=== PATIENT | female | born 1955 | race Caucasian/White ===

== ENCOUNTER 2017-09-08 12:09 | Emergency (ER) | payer OTHER ==
[~2017-09-08] VITALS: Ht 172.7 cm; Wt 60.0 kg
[~2017-09-08 12:09] MED LIST: CHOL1TAB41 PO; LANS30CA PO; XANA1TAB2 PO; ZOLO100T PO
[2017-09-08 12:16] VITALS: BP 125/78; PULSE 99; RESP 18; TEMP 98.4; O2SAT 99
--- NOTE | 2017-09-08 13:30 | RADRPT ---
EXAM DATE/TIME: 09/08/2017 13:06 [facility] COMPARISON: ANKLE LEFT COMPLETE ([id number]), February 23, 2015, 13:51. INDICATIONS : Fell last night, bilateral ankle pain MEDICAL HISTORY : Multiple sclerosis. right ankle fracture SURGICAL HISTORY : right ankle ORIF ENCOUNTER: Initial ACUITY: 1 day PAIN SCORE: 10/10 LOCATION: Left ankle FINDINGS: 3 views of the ankle demonstrate comminuted fractures of the diametaphysis of the distal tibia and fi bula with one of the fracture lines in the tibia extending to the posterior metaphysis. No intra-art icular extension seen. No significant displacement or angulation. There is mild soft tissue swellin g about the lateral aspect of the ankle. The ankle mortise appears intact. Large plantar calcaneal spur, similar to prior. CONCLUSION: Comminuted fractures of the distal tibia and fibula. Chan Yu MD on September 08, 2017 at 13:27 Board Certified Radiologist. This report was verified electronically.
--- NOTE | 2017-09-08 13:39 | RADRPT ---
EXAM DATE/TIME: 09/08/2017 13:06 [facility] COMPARISON: ANKLE RIGHT COMPLETE ([id number]), May 29, 2016, 7:29. INDICATIONS : Fell last night, bilateral ankle pain MEDICAL HISTORY : right ankle fracture SURGICAL HISTORY : right ankle ORIF ENCOUNTER: Initial ACUITY: 1 day PAIN SCORE: 10/10 LOCATION: Right ankle FINDINGS: Three-view examination demonstrates indwelling internal fixation hardware with a plate in the distal fibula, a long compression screw extending from the medial malleolus into the diametaphyseal region o f the distal tibia, and 3 anterior compression screws in the distal tibia. Bony structures are in no rmal alignment. No evidence of acute fracture. Large plantar calcaneal spur is similar to prior pos top diffuse osteopenia. CONCLUSION: No evidence of recent bony injury. Internal fixation hardware is intact. Diffuse osteopenia. Chan Yu MD on September 08, 2017 at 13:36 Board Certified Radiologist. This report was verified electronically.
[2017-09-08] MEDS ORDERED: CALC1TAB16 PO (13:54)
--- NOTE | 2017-09-08 14:09 | PD ---
HPI Chief Complaint: Injury Time Seen by Provider: 13:53 Travel History International Travel<30 days: No Contact w/Intl Traveler<30days: No Traveled to known affect area: No History of Present Illness HPI 62-year-old female, with history of MS, presents to the emergency department with complaint of bilateral lower leg and ankle pain after her knees gave out and she fell. Arrived via EMS. She was walking with her walker, as normal, and her knees gave out and she fell. She said she felt to the right side and her right leg hit a small wooden rocking chair. She denies hitting her head or loss of consciousness. Has history of right ankle fracture with surgery and hardware placement. Denies paresthesias, loss of sensation to bilateral lower extremities. Rates pain 10/10. Describes it as constant throbbing and aching. Worse with movement. No known relieving factors. Has not taken any medication or try any treatments to alleviate her symptoms. Primary care provider is Dr. Hardeep Palacio. Allergies to penicillin. Neurologist is Dr. Guan. History of multiple sclerosis. Has no other medical complaints. No other modifying factors or associated signs and symptoms. PFSH Past Medical History Arthritis: Yes Anxiety: Yes Depression: Yes Cancer: No Cardiovascular Problems: No High Cholesterol: Yes Chemotherapy: No Cerebrovascular Accident: No Diabetes: No Diminished Hearing: No Endocrine: No Genitourinary: No Hepatitis: No Hiatal Hernia: No Immune Disorder: Yes (EBSTEIN GILLIAM) Musculoskeletal: Yes (POSSIBLE MS/ BULGING DISCS; SPINAL STENOSIS; OSTEOPOROSIS ) Neurologic: Yes Psychiatric: No Reproductive: No Respiratory: No Thyroid Disease: No Tetanus Vaccination: Unknown Influenza Vaccination: No Menopausal: Yes : 2 Para: 2 Past Surgical History Abdominal Surgery: No Body Medical Devices: HARDWARE IN RIGHT ELBOW REMOVED Cardiac Surgery: No Ear Surgery: No Endocrine Surgery: No Eye Surgery: No Genitourinary Surgery: No Gynecologic Surgery: No Hysterectomy: No Oral Surgery: No Thoracic Surgery: No Other Surgery: Yes Social History Alcohol Use: No Tobacco Use: Yes (1.5 PPD) Substance Use: No Allergies-Medications (Allergen,Severity, Reaction): Coded Allergies: penicillin G (Unverified Allergy, Intermediate, Itching, 09/08/17) Reported Meds & Prescriptions Reported Meds & Active Scripts Active [place] (Hydrocodone-Acetaminophen) 10-325 Mg Tab 1 Tab PO Q6H PRN Miralax Powder (Polyethylene Glycol 3350 Powder) 17 Gm Powd 17 Gm PO DAILY Mix and dissolve one measuring cap-ful (17 grams) in water or juice. Reported Calcium Citrate-Vitamin D 315-200 Mg-Unit Tab 1 Tab PO BID Lansoprazole 30 Mg Capdr 30 Mg PO DAILY Xanax (Alprazolam) 1 Mg Tab 1 Mg PO BID PRN Zoloft (Sertraline HCl) 100 Mg Tab 150 Mg PO DAILY Review of Systems Except as stated in HPI: all other systems reviewed are Neg Physical Exam Narrative GENERAL: Well-nourished, well-developed female patient, in no acute distress SKIN: Warm and dry. HEAD: Atraumatic. Normocephalic. EYES: Pupils equal and round. No scleral icterus. No injection or drainage. ENT: Mucosa pink and moist. Airway patent. NECK: Trachea midline. CARDIOVASCULAR: Regular rate. RESPIRATORY: No accessory muscle use. GASTROINTESTINAL: Flat. MUSCULOSKELETAL: Left ankle with point tenderness to the lateral malleolar zone ; with minimal edema; without erythema, ecchymosis; no obvious deformity; patient has tenderness on palpation to the lower tib/fib area of the leg also. Right ankle with tenderness on palpation to the medial and lateral malleolar zone; no obvious deformity; without erythema, edema, ecchymosis. Right lower leg with tenderness on palpation and some noted possible deformity to the proximal aspect of the right lower leg just below the knee; areas of tenderness on palpation and without erythema, edema, ecchymosis. Bilateral lower extremities are supple and nontender 2+ pedal pulses and sensory intact and without erythema or edema. No obvious deformities. No clubbing. No cyanosis. No edema. NEUROLOGICAL: Awake and alert. Oriented 3. No obvious cranial nerve deficits. Motor grossly within normal limits. Normal speech. PSYCHIATRIC: Appropriate mood and affect; insight and judgment normal. Data Data Last Documented VS Vital Signs Date Time Temp Pulse Resp B/P (MAP) Pulse Ox O2 Delivery O2 Flow Rate FiO2 09/08/17 18:56 09/08/17 17:51 85 14 99 Room Air 09/08/17 12:16 98.4 Orders Orders Ankle, Complete ([id number]) (09/08/17 ) Ankle, Complete ([id number]) (09/08/17 ) Tibia/Fibula (Ap/Lat) (09/08/17 14:04) Morphine Inj (Morphine Inj) (09/08/17 14:15) Ondansetron Inj (Zofran Inj) (09/08/17 14:15) Iv Access Insert/Monitor (09/08/17 14:05) Splint Or Brace Apply/Monitor (09/08/17 15:10) Ice/Cold Pack (09/08/17 15:16) Ed Discharge Order (09/08/17 17:08) Fiberglass Short Leg Splint Ad (09/08/17 ) Fiberglass Sugartong Sp Ad Sl (09/08/17 ) Fiberglass Long Leg Splint Ad (09/08/17 ) MDM Medical Decision Making Medical Screen Exam Complete: Yes Emergency Medical Condition: Yes Medical Record Reviewed: Yes Differential Diagnosis Fracture, sprain, injury Narrative Course 62-year-old female with history of multiple sclerosis with bilateral ankle and lower leg pain after her knees gave out and she fell. She was not using her walker. She denies hitting her head or loss of consciousness. Denies neck pain or back pain. Bilateral ankle x-rays were ordered in triage. 1405: Bilateral ankle x-rays conclude: Ankle X-Ray 09/08/17 0000 Signed Impressions: Right ankle Service Date/Time: Friday, September 08, 2017 13:06 - CONCLUSION: No evidence of recent bony injury. Internal fixation hardware is intact. Diffuse osteopenia. Chan Yu MD Ankle X-Ray 09/08/17 0000 Signed Impressions: Left ankle Service Date/Time: Friday, September 08, 2017 13:06 - CONCLUSION: Comminuted fractures of the distal tibia and fibula. Chan Yu MD There is concern of right tib-fib fracture to the proximal aspect on exam. Right tib-fib x-ray ordered. IV site started. Morphine and Zofran ordered. 1619: Right tib-fib x-ray concludes: Comminuted fractures with mild angulation involving the proximal tibia and fibula. Call placed to orthopedic surgeon. Dr Fraser spoke with orthopedic surgeon and they are nonsurgical. Dr. Ríos offered for the patient to be admitted and she wants to go home. See Dr. Ríos's note for patient disposition. Patient will be discharged home. Instructed patient follow-up with orthopedic surgeon. Instructed patient to follow up with primary care provider. Patient verbalizes understanding and agreement with treatment plan. Patient is medically cleared and stable for discharge. Discussed reasons to return to the emergency department. Patient agrees with treatment plan. The patients vital signs are stable and the patient is stable for outpatient follow-up and treatment. Patient discharged home, stable and in no acute distress. Diagnosis Primary Impression: Left tibial fracture Qualified Codes: S82.302A - Unspecified fracture of lower end of left tibia, initial encounter for closed fracture Additional Impressions: Left fibular fracture Qualified Codes: S82.832A - Other fracture of upper and lower end of left fibula, initial encounter for closed fracture Right tibial fracture Qualified Codes: S82.101A - Unspecified fracture of upper end of right tibia, initial encounter for closed fracture Right fibular fracture Qualified Codes: S82.831A - Other fracture of upper and lower end of right fibula, initial encounter for closed fracture Scripts Hydrocodone-Acetaminophen ([place]) 10-325 Mg Tab 1 TAB PO Q6H Y for PAIN, #20 TAB 0 Refills Prov: Justin Ríos MD 09/08/17 Polyethylene Glycol 3350 Powder (Miralax Powder) 17 Gm Powd 17 GM PO DAILY for Constipation, #1 CAN 0 Refills Mix and dissolve one measuring cap-ful (17 grams) in water or juice. Prov: Justin Ríos MD 09/08/17 Nicole Story Sep 08, 2017 14:09
[2017-09-08] MEDS ORDERED: ONDANSETRON HCL 4 MG/2 ML VIAL IV PUSH ONE (14:15)
[2017-09-08] MEDS ORDERED: MORPHINE SULFATE 4 MG/ML INJ IV PUSH ONE (14:15)
[2017-09-08 15:20] VITALS: BP 129/72; PULSE 90; RESP 16; O2SAT 99
--- NOTE | 2017-09-08 16:06 | RADRPT ---
EXAM DATE/TIME: 09/08/2017 15:52 [facility] COMPARISON: No previous studies available for comparison. INDICATIONS : Pain from fall. MEDICAL HISTORY : Prior broken ankle, right. SURGICAL HISTORY : Surgical repair, right ankle. ENCOUNTER: Initial ACUITY: 2 days PAIN SCORE: 10/10 LOCATION: Right proximal lower leg. FINDINGS: Diffuse osteopenia. Partially comminuted fractures of the proximal tibia and edema are present. The fibular fractures involve both the metaphysis and proximal diametaphyseal region with mild lateral d isplacement of distal fracture fragment. The fracture lines in the proximal tibia extending into the metaphysis centrally and there is mild posterior angulation. Hardware in the distal fibula and tibia is intact. No fracture seen in the distal tibia or fibula. No radiopaque foreign body seen in the soft tissues. CONCLUSION: Comminuted fractures with mild angulation involving the proximal tibia and fibula. Chan Yu MD on September 08, 2017 at 16:03 Board Certified Radiologist. This report was verified electronically.
[2017-09-08] MEDS ORDERED: HYDR-3366 PO (17:07)
[2017-09-08] MEDS ORDERED: MIRA3350 PO (17:07)
--- NOTE | 2017-09-08 17:07 | PD ---
Physical Exam Narrative GENERAL: SKIN: Warm and dry. HEAD: Atraumatic. Normocephalic. EYES: Pupils equal and round. No scleral icterus. No injection or drainage. ENT: No nasal bleeding or discharge. Mucous membranes pink and moist. NECK: Trachea midline. No JVD. CARDIOVASCULAR: Regular rate and rhythm. RESPIRATORY: No accessory muscle use. Clear to auscultation. Breath sounds equal bilaterally. GASTROINTESTINAL: Abdomen soft, non-tender, nondistended. Hepatic and splenic margins not palpable. MUSCULOSKELETAL: Extremities without clubbing, cyanosis, HOWEVER TTP ON RIGHT PROXIMAL TIB/FIB AND LEFT DISTAL TIB FIB NEUROLOGICAL: Awake and alert. No obvious cranial nerve deficits. Motor grossly within normal limits. Five out of 5 muscle strength in the arms and legs. Normal speech. PSYCHIATRIC: Appropriate mood and affect; insight and judgment normal. Data Data Last Documented VS Vital Signs Date Time Temp Pulse Resp B/P (MAP) Pulse Ox O2 Delivery O2 Flow Rate FiO2 09/08/17 15:20 90 16 129/72 (91) 99 Room Air 09/08/17 12:16 98.4 Orders Orders Ankle, Complete ([id number]) (09/08/17 ) Ankle, Complete ([id number]) (09/08/17 ) Tibia/Fibula (Ap/Lat) (09/08/17 14:04) Morphine Inj (Morphine Inj) (09/08/17 14:15) Ondansetron Inj (Zofran Inj) (09/08/17 14:15) Iv Access Insert/Monitor (09/08/17 14:05) Splint Or Brace Apply/Monitor (09/08/17 15:10) Ice/Cold Pack (09/08/17 15:16) MDM Medical Record Reviewed: Yes Supervised Visit with [facility]: Yes Physician Communication Physician Communication DISCUSSED WITH DR STOUT ORTHOPEDIST WHO AFTER REVIEW RECOMMENDED NONOPERATIVE CARE. WHICH WHEN D/W PATIENT, PATIENT AGREED WITH AND STATED SHE WOULD LIKE TO GO HOME AND SETUP HOME HEALTH ON HER OWN WITH THE HELP OF HER DAUGHTER. Diagnosis Primary Impression: Left tibial fracture Qualified Codes: S82.302A - Unspecified fracture of lower end of left tibia, initial encounter for closed fracture Additional Impressions: Left fibular fracture Qualified Codes: S82.832A - Other fracture of upper and lower end of left fibula, initial encounter for closed fracture Right tibial fracture Qualified Codes: S82.101A - Unspecified fracture of upper end of right tibia, initial encounter for closed fracture Right fibular fracture Qualified Codes: S82.831A - Other fracture of upper and lower end of right fibula, initial encounter for closed fracture Referrals: Ahmet Stout MD Patient Instructions: General Instructions, Leg Fracture (DC) Scripts Hydrocodone-Acetaminophen ([place]) 10-325 Mg Tab 1 TAB PO Q6H Y for PAIN, #20 TAB 0 Refills Prov: Justin Ríos MD 09/08/17 Polyethylene Glycol 3350 Powder (Miralax Powder) 17 Gm Powd 17 GM PO DAILY for Constipation, #1 CAN 0 Refills Mix and dissolve one measuring cap-ful (17 grams) in water or juice. Prov: Justin Ríos MD 09/08/17 Disposition: 01 DISCHARGE HOME Condition: Stable Justin Ríos MD Sep 08, 2017 17:07
[2017-09-08 17:51] VITALS: BP 120/70; PULSE 85; RESP 14; O2SAT 99
== END 2017-09-08 19:01 | disposition home or self-care (01) ==
LOC: NEPD 12:09 → NEDAMB 19:01
DX: S82.452A Displaced comminuted fracture of shaft of left fibula, initial encounter for closed fracture (principal); S82.252A Displaced comminuted fracture of shaft of left tibia, initial encounter for closed fracture; M85.871 Other specified disorders of bone density and structure, right ankle and foot; G35 Multiple sclerosis; M19.90 Unspecified osteoarthritis, unspecified site; F41.9 Anxiety disorder, unspecified; F32.9 Major depressive disorder, single episode, unspecified; E78.00 Pure hypercholesterolemia, unspecified; W18.00XA Striking against unspecified object with subsequent fall, initial encounter
CPT/HCPCS: 73590; 73610; 96374; 96375; 99284; J2270; J2405

== ENCOUNTER 2017-09-24 18:06 | Inpatient (IN) | payer OTHER, MEDICARE ==
[~2017-09-24] VITALS: Ht 172.7 cm; Wt 63.1 kg
[~2017-09-24 18:06] MED LIST changes: +CALC1TAB16 PO; -CHOL1TAB41 PO; +HYDR-3366 PO; +MIRA3350 PO
[2017-09-24 18:33] VITALS: BP 131/63; PULSE 84; RESP 18; TEMP 97.8; O2SAT 94
[2017-09-24] MEDS ORDERED: MORPHINE SULFATE 2 MG/ML INJ IV PUSH ONE (18:45)
[2017-09-24] MEDS ORDERED: SODIUM CHLOR 0.9% 1000 ML INJ 1,000 ML IV SCH (18:45)
[2017-09-24] MEDS ORDERED: ONDANSETRON HCL 4 MG/2 ML VIAL IV PUSH ONE (18:45)
[2017-09-24 18:46] VITALS: O2SAT 99
--- NOTE | 2017-09-24 18:50 | PD ---
HPI Chief Complaint: Injury Time Seen by Provider: 18:34 Travel History International Travel<30 days: No Contact w/Intl Traveler<30days: No Traveled to known affect area: No History of Present Illness HPI 62-year-old female complains of bilateral ankle pain. Patient was seen in emergency room September 08, 2017 after a fall. Patient complains of lateral lower leg and ankle injury at that time. X-ray of the left ankle at that time shows comminuted fracture of distal tibia and fibula. X-ray of the right ankle at that time shows no evidence of recent bony injury. Internal fixation hardware in place. X-ray of the right tib-fib shows fracture proximal right tibia and fibula. Patient had splint applied to both ankles. Patient was discharged home to follow-up with orthopedist. Patient states that she has not make an appointment with orthopedist for follow-up so far. Patient was given prescription for hydrocodone for pain. Patient states that she had persistent pain despite the pain medication. Patient states the pain is sharp pain localized to bilateral ankle area. Patient denies any pain radiation. Patient denies any new injury since last seen in the ED. On a scale of 1-10 the pain is a 10. Patient has history of MS and has been seen neurologist Dr. Guan for that. Primary care physician Dr. Hardeep Palacio. [facility] Past Medical History Arthritis: Yes Anxiety: Yes Depression: Yes Cancer: No Cardiovascular Problems: No High Cholesterol: Yes Chemotherapy: No Cerebrovascular Accident: No Diabetes: No Diminished Hearing: No Endocrine: No Genitourinary: No Hepatitis: No Hiatal Hernia: No Immune Disorder: Yes (EBSTEIN GILLIAM) Musculoskeletal: Yes (POSSIBLE MS/ BULGING DISCS; SPINAL STENOSIS; OSTEOPOROSIS ) Neurologic: Yes Psychiatric: No Reproductive: No Respiratory: No Thyroid Disease: No ?: Not Menopausal: Yes : 2 Para: 2 Past Surgical History Abdominal Surgery: No Body Medical Devices: HARDWARE IN RIGHT ELBOW REMOVED Cardiac Surgery: No Ear Surgery: No Endocrine Surgery: No Eye Surgery: No Genitourinary Surgery: No Gynecologic Surgery: No Hysterectomy: No Oral Surgery: No Thoracic Surgery: No Other Surgery: Yes Social History Alcohol Use: No Tobacco Use: Yes (1.5 PPD) Substance Use: No Allergies-Medications (Allergen,Severity, Reaction): Coded Allergies: penicillin G (Unverified Allergy, Intermediate, Itching, 09/08/17) Reported Meds & Prescriptions Reported Meds & Active Scripts Active [place] (Hydrocodone-Acetaminophen) 10-325 Mg Tab 1 Tab PO Q6H PRN Miralax Powder (Polyethylene Glycol 3350 Powder) 17 Gm Powd 17 Gm PO DAILY Mix and dissolve one measuring cap-ful (17 grams) in water or juice. Reported Calcium Citrate-Vitamin D 315-200 Mg-Unit Tab 1 Tab PO BID Lansoprazole 30 Mg Capdr 30 Mg PO DAILY Xanax (Alprazolam) 1 Mg Tab 1 Mg PO BID PRN Zoloft (Sertraline HCl) 100 Mg Tab 150 Mg PO DAILY Review of Systems General / Constitutional: No: Fever Eyes: No: Visual changes HENT: No: Headaches Cardiovascular: No: Chest Pain or Discomfort Respiratory: No: Shortness of Breath Gastrointestinal: No: Abdominal Pain Genitourinary: No: Dysuria Musculoskeletal: Positive: Pain Skin: No Rash Neurologic: No: Weakness Psychiatric: No: Depression Endocrine: No: Polydipsia Hematologic/Lymphatic: No: Easy Bruising Physical Exam Narrative GENERAL: Well-nourished, well-developed patient. SKIN: Focused skin assessment warm/dry. HEAD: Normocephalic. EYES: No scleral icterus. No injection or drainage. NECK: Supple, trachea midline. No JVD or lymphadenopathy. CARDIOVASCULAR: Regular rate and rhythm without murmurs, gallops, or rubs. RESPIRATORY: Breath sounds equal bilaterally. No accessory muscle use. GASTROINTESTINAL: Abdomen soft, non-tender, nondistended. MUSCULOSKELETAL: Patient has moderate diffuse tenderness over the right lower leg. Ecchymosis diffusely noted. Patient has diffuse moderate tenderness over the right ankle. Full range of motion of the toes. Patient has moderate diffuse tenderness over the left leg and left ankle also. Mild ecchymosis noted left ankle. Full range of motion of the toes. Good DP pulses bilaterally. Weak plantar flexion on the right foot. No obvious foot drop on the right foot. No evidence of left foot drop. Unable to move much of the left foot secondary to pain. BACK: Nontender without obvious deformity. No CVA tenderness. Neurologic exam normal. Data Data Last Documented VS Vital Signs Date Time Temp Pulse Resp B/P (MAP) Pulse Ox O2 Delivery O2 Flow Rate FiO2 09/24/17 18:46 99 Room Air 09/24/17 18:33 97.8 84 18 131/63 (85) Orders Orders Electrocardiogram (09/24/17 18:42) Complete Blood Count With Diff (09/24/17 18:42) Comprehensive Metabolic Panel (09/24/17 18:42) Prothrombin Time / Inr (Pt) (09/24/17 18:42) Act Partial Throm Time (Ptt) (09/24/17 18:42) Urinalysis - C+S If Indicated (09/24/17 18:42) Chest, Single Ap (09/24/17 18:42) Iv Access Insert/Monitor (09/24/17 18:42) Ecg Monitoring (09/24/17 18:42) Oximetry (09/24/17 18:42) Sodium Chlor 0.9% 1000 Ml Inj (Ns 1000 M (09/24/17 18:45) Morphine Inj (Morphine Inj) (09/24/17 18:45) Ondansetron Inj (Zofran Inj) (09/24/17 18:45) Tibia/Fibula (Ap/Lat) (09/24/17 18:44) Tibia/Fibula (Ap/Lat) (09/24/17 18:44) Hydromorphone Pf Inj (Dilaudid Pf Inj) (09/24/17 19:45) Ankle, Limited (Ap&Lat) (09/24/17 18:44) Ankle, Limited (Ap&Lat) (09/24/17 18:44) Splint Or Brace Apply/Monitor (09/24/17 20:43) Admit Order (Ed Use Only) (09/24/17 20:55) Consult Orthopedic (09/24/17 ) Labs Laboratory Tests Test 09/24/17 18:58 White Blood Count 6.4 TH/MM3 Red Blood Count 3.86 MIL/MM3 Hemoglobin 11.6 GM/DL Hematocrit 34.8 % Mean Corpuscular Volume 90.0 FL Mean Corpuscular Hemoglobin 30.0 PG Mean Corpuscular Hemoglobin Concent 33.3 % Red Cell Distribution Width 14.3 % Platelet Count 362 TH/MM3 Mean Platelet Volume 7.9 FL Neutrophils (%) (Auto) 61.5 % Lymphocytes (%) (Auto) 22.0 % Monocytes (%) (Auto) 11.1 % Eosinophils (%) (Auto) 4.7 % Basophils (%) (Auto) 0.7 % Neutrophils # (Auto) 3.9 TH/MM3 Lymphocytes # (Auto) 1.4 TH/MM3 Monocytes # (Auto) 0.7 TH/MM3 Eosinophils # (Auto) 0.3 TH/MM3 Basophils # (Auto) 0.0 TH/MM3 CBC Comment DIFF FINAL Differential Comment Prothrombin Time 10.4 SEC Prothromb Time International Ratio 1.0 RATIO Activated Partial Thromboplast Time 28.5 SEC Blood Urea Nitrogen 22 MG/DL Creatinine 0.57 MG/DL Random Glucose 92 MG/DL Total Protein 6.7 GM/DL Albumin 3.2 GM/DL Calcium Level 8.5 MG/DL Alkaline Phosphatase 294 U/L Aspartate Amino Transf (AST/SGOT) 29 U/L Alanine Aminotransferase (ALT/SGPT) 23 U/L Total Bilirubin 0.4 MG/DL Sodium Level 140 MEQ/L Potassium Level 4.2 MEQ/L Chloride Level 106 MEQ/L Carbon Dioxide Level 28.6 MEQ/L Anion Gap 5 MEQ/L Estimat Glomerular Filtration Rate 107 ML/MIN MDM Medical Decision Making Medical Screen Exam Complete: Yes Emergency Medical Condition: Yes Medical Record Reviewed: Yes Interpretation(s) Last Impressions Tibia/Fibula X-Ray 09/24/171843 Signed Impressions: Service Date/Time: Sunday, September 24, 2017 19:28 - CONCLUSION: Comminuted non-angulated fractures of the distal tibia and fibula with intra-articular extension of one of the tibial fracture lines. Nondisplaced fracture of the proximal fibular metaphysis. Chan Yu MD Tibia/Fibula X-Ray 09/24/[id number] Signed Impressions: Service Date/Time: Sunday, September 24, 2017 19:28 - CONCLUSION: Acute fractures of the proximal tibia and fibula with several large comminuted fragments in the proximal tibia. Chan Yu MD Ankle X-Ray [id number]/24/171843 Signed Impressions: Service Date/Time: Sunday, September 24, 2017 19:28 - CONCLUSION: Comminuted fractures of the distal tibia and fibula. Intra-articular extension of one of the tibial fracture lines. Chan Yu MD Ankle X-Ray [id number]/24/171843 Signed Impressions: Service Date/Time: Sunday, September 24, 2017 19:28 - CONCLUSION: Internal fixation hardware in the distal leg is grossly intact. Chan Yu MD Chest X-Ray 09/24/17 1842 Signed Impressions: Service Date/Time: Sunday, September 24, 2017 19:36 - CONCLUSION: Patchy left basilar infiltrates and linear atelectasis/scarring right lower lobe. Chan Yu MD 2034 PM. CBC within normal limits. CMP within normal limits. Alkaline phosphatase 294. Differential Diagnosis Differential diagnosis including bilateral tib-fib fracture. Narrative Course 62-year-old female with right proximal tib-fib fracture and left distal tib-fib fracture. Normal saline solution 100 cc an hour. Morphine 2 mg IV. Zofran 4 mg IV. Dilaudid 0.5 mg IV. Sugar tong splint left leg. Knee immobilizer right leg. Spoke with Dr. Thompson, orthopedist ammonia solution preparer. Advised medical admission. N.p.o. after midnight. Diagnosis Primary Impression: Closed fracture of distal end of left fibula and tibia Qualified Codes: S82.302G - Unspecified fracture of lower end of left tibia, subsequent encounter for closed fracture with delayed healing; S82.832G - Other fracture of upper and lower end of left fibula, subsequent encounter for closed fracture with delayed healing Additional Impressions: Closed fracture of proximal end of right tibia and fibula Qualified Codes: S82.101G - Unspecified fracture of upper end of right tibia, subsequent encounter for closed fracture with delayed healing; S82.831G - Other fracture of upper and lower end of right fibula, subsequent encounter for closed fracture with delayed healing Fracture of left proximal fibula Qualified Codes: S82.832G - Other fracture of upper and lower end of left fibula, subsequent encounter for closed fracture with delayed healing Admitting Information Admitting Physician Requests: Admit Ty Segovia MD Sep 24, 2017 18:49
[2017-09-24 19:17] LABS: AUTOMATED NEUTROPHIL # 3.9 TH/MM3 (1.8-7.7); BASOPHIL % 0.7 % (0.0-2.0); EOSINOPHIL # 0.3 TH/MM3 (0-0.4); EOSINOPHIL % 4.7 % (0.0-4.0); HEMATOCRIT 34.8 % (35.0-46.0); HEMOGLOBIN 11.6 GM/DL (11.6-15.3); LYMPHOCYTE # 1.4 TH/MM3 (1.0-4.8); MEAN CORPUSCULAR HGB CONC 33.3 % (32.0-36.0); MEAN PLATELET VOLUME 7.9 FL (7.0-11.0); MONO % 11.1 % (0.0-8.0); MONOCYTE # 0.7 TH/MM3 (0-0.9); NEUT % 61.5 % (16.0-70.0); PLATELET COUNT 362 TH/MM3 (150-450); RED BLOOD COUNT 3.86 MIL/MM3 (4.00-5.30); RED CELL DISTRIBUTION WIDTH 14.3 % (11.6-17.2); WHITE BLOOD COUNT 6.4 TH/MM3 (4.0-11.0)
[2017-09-24 19:35] LABS: PROTHROMBIN TIME - PATIENT 10.4 SEC (9.8-11.6)
[2017-09-24 19:40] LABS: ALBUMIN 3.2 GM/DL (3.4-5.0); ALT (GPT) 23 U/L (10-53); AST (GOT) 29 U/L (15-37); BICARBONATE 28.6 MEQ/L (21.0-32.0); BLOOD UREA NITROGEN 22 MG/DL (7-18); CALCIUM 8.5 MG/DL (8.5-10.1); CHLORIDE 106 MEQ/L (98-107); CREATININE 0.57 MG/DL (0.50-1.00); GLOMERULAR FILTRATION RATE 107 ML/MIN (>89); GLUCOSE,RANDOM 92 MG/DL (74-106); SODIUM (NA) 140 MEQ/L (136-145)
[2017-09-24 19:42] LABS: ALKALINE PHOSPHATASE 294 U/L (45-117); TOTAL BILIRUBIN ADULT 0.4 MG/DL (0.2-1.0); TOTAL PROTEIN 6.7 GM/DL (6.4-8.2)
[2017-09-24] MEDS ORDERED: HYDROmorphone HCL PF 2 MG/ML VIAL IV PUSH ONE (19:45)
--- NOTE | 2017-09-24 19:52 | RADRPT ---
EXAM DATE/TIME: 09/24/2017 19:28 [facility] COMPARISON: TIBIA/FIBULA RIGHT (AP/LAT), September 08, 2017, 15:52. INDICATIONS : Right leg pain post fall, Prior history of Fracture. MEDICAL HISTORY : Right ankle fracture SURGICAL HISTORY : Surgical repair right ankle ENCOUNTER: Initial ACUITY: 1 day PAIN SCORE: 10/10 LOCATION: Right proximal lower leg FINDINGS: Diffuse osteopenia. There is are multiple comminuted fractures involving the proximal shaft and diam etaphyseal region of the proximal tibia with one of the butterfly fragments measuring in excess of 7 cm in length. There is mild lateral angulation of the distal fracture fragment. There is also an an gulated oblique fracture through the proximal shaft of the fibula and a nondisplaced fracture through the lateral metaphysis of the proximal fibula. A internal fixation hardware about the ankle with la teral fibular plate and long medial tibial screw and multiple anterior tibial screws. CONCLUSION: Acute fractures of the proximal tibia and fibula with several large comminuted fragments in the proxi mal tibia. Chan Yu MD on September 24, 2017 at 19:48 Board Certified Radiologist. This report was verified electronically.
--- NOTE | 2017-09-24 19:59 | RADRPT ---
EXAM DATE/TIME: 09/24/2017 19:28 [facility] COMPARISON: No previous studies available for comparison. INDICATIONS : Left leg pain post fall MEDICAL HISTORY : Multiple sclerosis. right ankle fracture SURGICAL HISTORY : Right ORIF ankle ENCOUNTER: Initial ACUITY: 1 day PAIN SCORE: 10/10 LOCATION: Left Tibia FINDINGS: Two-view examination is performed in a fiberglass splint. There is a comminuted fracture of the dist al tibia and fibula with one of the tibial fracture line longitudinal extending intra-articular. The fractures of the distal fibula involving the medial cortex. No significant angulation or displaceme nt seen. There is also a nondisplaced fracture of the proximal metaphysis of the fibula, slightly ob liquely oriented. CONCLUSION: Comminuted non-angulated fractures of the distal tibia and fibula with intra-articular extension of o ne of the tibial fracture lines. Nondisplaced fracture of the proximal fibular metaphysis. Chan Yu MD on September 24, 2017 at 19:51 Board Certified Radiologist. This report was verified electronically.
--- NOTE | 2017-09-24 20:00 | RADRPT ---
EXAM DATE/TIME: 09/24/2017 19:36 [facility] COMPARISON: No previous studies available for comparison. INDICATIONS : Trauma Fall MEDICAL HISTORY : Multiple sclerosis. SURGICAL HISTORY : Right ankle surgical repair ENCOUNTER: Initial ACUITY: 1 day PAIN SCORE: 0/10 LOCATION: chest FINDINGS: Horizontal linear opacities in the lower right lung and patches of infiltrate in the lower left lung. Both hemidiaphragms remain well delineated. The upper lungs are clear. The heart is normal size. CONCLUSION: Patchy left basilar infiltrates and linear atelectasis/scarring right lower lobe. Chan Yu MD on September 24, 2017 at 19:57 Board Certified Radiologist. This report was verified electronically.
--- NOTE | 2017-09-24 20:05 | RADRPT ---
EXAM DATE/TIME: 09/24/2017 19:28 [facility] COMPARISON: ANKLE RIGHT COMPLETE ([id number]), September 08, 2017, 13:06. ANKLE RIGHT LIMITED (AP&LAT), June 14, 2016, 13:38. INDICATIONS : Right ankle pain, prior right ankle fracture MEDICAL HISTORY : Multiple sclerosis. SURGICAL HISTORY : Right orif ankle ENCOUNTER: Initial ACUITY: 1 day PAIN SCORE: 10/10 LOCATION: Right ankle FINDINGS: Diffuse osteopenia stop proximal tibia and fibular fractures are partially included in the field-of-v iew of the exam. Internal fixation hardware in the distal leg with lateral fibular plate, L3 anterio r tibial screws, and a long screw across the medial malleolus into the diametaphyseal region. The watters rdware appears intact. There is a mild posterior bowing of the tibial metaphysis on the lateral view which has similar features to postoperative images performed in 09/08/17. Large plantar calcaneal sp ur. CONCLUSION: Internal fixation hardware in the distal leg is grossly intact. Chan Yu MD on September 24, 2017 at 20:00 Board Certified Radiologist. This report was verified electronically.
--- NOTE | 2017-09-24 20:06 | RADRPT ---
EXAM DATE/TIME: 09/24/2017 19:28 [facility] COMPARISON: No previous studies available for comparison. INDICATIONS : Left ankle pain post fall MEDICAL HISTORY : Multiple sclerosis. SURGICAL HISTORY : Right ankle ORIF ENCOUNTER: Initial ACUITY: 1 day PAIN SCORE: 10/10 LOCATION: Left ankle FINDINGS: 2 views of the ankle were performed in a fiberglass splint. Comminuted fractures of the distal tibia and fibula with the tibial fractures involving the midline and the lateral aspect of the metaphysis and the fibular fractures the knee. One of the fracture lines in the tibia extends longitudinally an d intra-articular without step-off of the intra-articular cortical line. On lateral view, there is a lso a posterior tibial metaphyseal fracture. Ankle mortise is intact. Large plantar calcaneal spur. Diffuse osteopenia. CONCLUSION: Comminuted fractures of the distal tibia and fibula. Intra-articular extension of one of the tibial fracture lines. Chan Yu MD on September 24, 2017 at 20:03 Board Certified Radiologist. This report was verified electronically.
[2017-09-24] MEDS ORDERED: SENNOSIDES 8.6 MG TAB PO PRN (21:00)
[2017-09-24] MEDS ORDERED: LACTULOSE SYRUP 20 GM/30 ML CUP PO PRN (21:00)
[2017-09-24] MEDS ORDERED: SODIUM CHLORIDE 0.9% FLUSH 10 ML FLUSH IV FLUSH PRN (21:00)
[2017-09-24] MEDS: SODIUM CHLORIDE 0.9% FLUSH 10 ML FLUSH IV FLUSH SCH (21:00)
[2017-09-24] MEDS ORDERED: ACETAMINOPHEN 325 MG TAB PO PRN (21:00)
[2017-09-24] MEDS ORDERED: MORPHINE SULFATE 2 MG/ML INJ IV PUSH PRN (21:00)
[2017-09-24] MEDS ORDERED: BISACODYL 10 MG SUPP RECTAL PRN (21:00)
[2017-09-24] MEDS ORDERED: ONDANSETRON HCL 4 MG/2 ML VIAL IVP PRN (21:00)
[2017-09-24] MEDS ORDERED: MAGNESIUM HYDROXIDE SUSP 30 ML CUP PO PRN (21:00)
[2017-09-24] MEDS: DOCUSATE SODIUM 50 MG/SENNA 8.6 MG TAB PO SCH (21:00)
--- NOTE | 2017-09-24 21:01 | HHI.HP ---
[facility] Unknown Admission Diagnosis Fracture distal left tib-fib. Fracture proximal right tib-fib Diagnoses: (1) Fracture, tibia and fibula Diagnosis: Principal (2) MS (multiple sclerosis) Diagnosis: Principal (3) Tobacco abuse Diagnosis: Principal Travel History International Travel<30 Days: No Contact w/Intl Traveler <30 Da: No Traveled to Known Affected Are: No History of Present Illness This is a 62-year-old female with a PMH of MS who presented to the ER with complaints of bilateral leg pain. Initial ER presentation on 09/08/17 after fall at home while trying to get out of rocking chair. X-ray 09/08/17 w/ bilateral comminuted fractures of distal tibia/fibula, s/p splint, Dr. Vu consulted by ER physician and recommended non-operative management and outpatient follow up, states she called the office and given appt at the end of the month, however states pain is progressively worse. No new injuries reported. Pain is constant, worse w/ movement, 10/10, non-radiating. On arrival, BP 131/63, HR 84, O2 sat 94% on RA, Afebrile. CBC unremarkable. Essentially remarkable except for BUN 22. INR 1.0. Dr. Thompson consulted by ER physician, plan is for surgical intervention. Review of Systems Except as stated in HPI: all other systems reviewed are Neg ROS: 14 point review of systems otherwise negative. Past Family Social History Past Medical History PMH: MS Past Surgical History PAST SURGICAL HISTORY: Left Elbow Surgery Allergies: Coded Allergies: penicillin G (Unverified Allergy, Intermediate, Itching, 09/08/17) Family History PAST FAMILY HISTORY: Reviewed. No h/o DM or CAD Social History PAST SOCIAL HISTORY: Smokes 1.5ppd. Negative for alcohol or drugs. Physical Exam Vital Signs Vital Signs Date Time Temp Pulse Resp B/P (MAP) Pulse Ox O2 Delivery O2 Flow Rate FiO2 09/24/17 18:46 99 Room Air 09/24/17 18:33 97.8 84 18 131/63 (85) 94 Physical Exam PE: GENERAL: Pleasant middle-aged white female in no acute distress. Daughter at bedside. HEENT: PERRLA, EOMI. No scleral icterus or conjunctival pallor. No lid lag or facial droop. CARDIOVASCULAR: Regular rate and rhythm. No obvious murmurs to auscultation. No chest tenderness to palpation. RESPIRATORY: No obvious rhonchi or wheezing. Clear to auscultation. Breath sounds equal bilaterally. GASTROINTESTINAL: Abdomen soft, non-tender, nondistended. BS normal. MUSCULOSKELETAL: Extremities without clubbing, cyanosis, or edema. No obvious deformities. Decreased ROM of bilateral lower extremities, RLE w/ knee immobilizer, LLE splint. NEUROLOGICAL: Awake, alert and oriented x4. No focal neurologic deficits. Moving both upper and lower extremities spontaneously. Laboratory Laboratory Tests Test 09/24/17 18:58 White Blood Count 6.4 Red Blood Count 3.86 Hemoglobin 11.6 Hematocrit 34.8 Mean Corpuscular Volume 90.0 Mean Corpuscular Hemoglobin 30.0 Mean Corpuscular Hemoglobin Concent 33.3 Red Cell Distribution Width 14.3 Platelet Count 362 Mean Platelet Volume 7.9 Neutrophils (%) (Auto) 61.5 Lymphocytes (%) (Auto) 22.0 Monocytes (%) (Auto) 11.1 Eosinophils (%) (Auto) 4.7 Basophils (%) (Auto) 0.7 Neutrophils # (Auto) 3.9 Lymphocytes # (Auto) 1.4 Monocytes # (Auto) 0.7 Eosinophils # (Auto) 0.3 Basophils # (Auto) 0.0 CBC Comment DIFF FINAL Differential Comment Prothrombin Time 10.4 Prothromb Time International Ratio 1.0 Activated Partial Thromboplast Time 28.5 Blood Urea Nitrogen 22 Creatinine 0.57 Random Glucose 92 Total Protein 6.7 Albumin 3.2 Calcium Level 8.5 Alkaline Phosphatase 294 Aspartate Amino Transf (AST/SGOT) 29 Alanine Aminotransferase (ALT/SGPT) 23 Total Bilirubin 0.4 Sodium Level 140 Potassium Level 4.2 Chloride Level 106 Carbon Dioxide Level 28.6 Anion Gap 5 Estimat Glomerular Filtration Rate 107 Result Diagram: 09/24/17185709/24/171857 Caprini VTE Risk Assessment Caprini VTE Risk Assessment: Mod/High Risk (score >= 2) Caprini Risk Assessment Model Point Value = 1 Point Value = 2 Point Value = 3 Point Value = 5 Age 41-60 Minor surgery BMI > 25 kg/m2 Swollen legs Varicose veins or History of unexplained or recurrent spontaneous Oral contraceptives or hormone replacement Sepsis (< 1 month) Serious lung disease, including pneumonia (< 1 month) Abnormal pulmonary function Acute myocardial infarction Congestive heart failure (< 1 month) History of inflammatory bowel disease Medical patient at bed rest Age 61-74 Arthroscopic surgery Major open surgery (> 45 min) Laparoscopic surgery (> 45 min) Malignancy Confined to bed (> 72 hours) Immobilizing plaster cast Central venous access Age >= 75 History of VTE Family history of VTE Factor V Leiden Prothrombin [id number] Lupus anticoagulant Anticardiolipin antibodies Elevated serum homocysteine Heparin-induced thrombocytopenia Other congenital or acquired thrombophilia Stroke (< 1 month) Elective arthroplasty Hip, pelvis, or leg fracture Acute spinal cord injury (< 1 month) Prophylaxis Regimen Total Risk Factor Score Risk Level Prophylaxis Regimen 0-1 Low Early ambulation 2 Moderate Order ONE of the following: *Sequential Compression Device (SCD) *Heparin 5000 units SQ BID 3-4 Higher Order ONE of the following medications: *Heparin 5000 units SQ TID *Enoxaparin/Lovenox 40 mg SQ daily (WT < 150 kg, CrCl > 30 mL/min) *Enoxaparin/Lovenox 30 mg SQ daily (WT < 150 kg, CrCl > 10-29 mL/min) *Enoxaparin/Lovenox 30 mg SQ BID (WT < 150 kg, CrCl > 30 mL/min) AND/OR *Sequential Compression Device (SCD) 5 or more Highest Order ONE of the following medications: *Heparin 5000 units SQ TID (Preferred with Epidurals) *Enoxaparin/Lovenox 40 mg SQ daily (WT < 150 kg, CrCl > 30 mL/min) *Enoxaparin/Lovenox 30 mg SQ daily (WT < 150 kg, CrCl > 10-29 mL/min) *Enoxaparin/Lovenox 30 mg SQ BID (WT < 150 kg, CrCl > 30 mL/min) AND *Sequential Compression Device (SCD) Assessment and Plan Problem List: (1) Fracture, tibia and fibula ICD Code: S82.209A - Unspecified fracture of shaft of unspecified tibia, initial encounter for closed fracture; S82.409A - Unspecified fracture of shaft of unspecified fibula, initial encounter for closed fracture (2) MS (multiple sclerosis) ICD Code: G35 - Multiple sclerosis (3) Tobacco abuse ICD Code: Z72.0 - Tobacco use Assessment and Plan A/P: 1. Bilateral Tib-Fib Fractures: s/p mechanical fall 09/08/17, seen in ER and referred for outpatient Ortho follow up however returns w/ ongoing pain. X-ray w/ bilateral tib-fib fractures, images reviewed by me. Dr. Thompson consulted, plan is for surgical intervention. NPO, IVF, analgesics/antiemetics as needed. Pre-op labs reviewed, essentially unremarkable. 2. MS: Follows w/ Dr. Guan, will consult as needed, no acute flare. Analgesics/antiemetics, resume home medications. 3. Tobacco Abuse: Pt counselled. NicoDerm prn. 4. DVT Prophylaxis: Anticoagulation post op 5. 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 6. Case discussed at length with ER physician, labs/records/imaging reviewed by me. Physician Certification 2 Midnight Certification Type: Admission for Inpatient Services Order for Inpatient Services The services are ordered in accordance with Medicare regulations or non- Medicare payer requirements, as applicable. In the case of services not specified as inpatient-only, they are appropriately provided as inpatient services in accordance with the 2-midnight benchmark. Estimated LOS (days): 2 days is the estimated time the patient will need to remain in the hospital, assuming treatment plan goals are met and no additional complications. Post-Hospital Plan: Not yet determined Celia Rolon MD Sep 24, 2017 21:01
[2017-09-25] VITALS: BP 106/59; PULSE 79; RESP 18; TEMP 97.2; O2SAT 92
[2017-09-25] MEDS: SODIUM CHLOR 0.9% 1000 ML INJ 1,000 ML IV SCH ×4 (00:13→20:15)
[2017-09-25] MEDS: HYDROmorphone HCL PF 2 MG/ML VIAL IV PUSH PRN ×2 (00:13→04:25)
[2017-09-25 06:21] VITALS: BP 97/55; PULSE 90; RESP 18; TEMP 97.9; O2SAT 95
--- NOTE | 2017-09-25 07:49 | PD.ORT.PN ---
Subjective Subjective Remarks s/p fall at home right knee pain and left ankle pain history of MS. uses walker to ambulate Objective Vitals Vital Signs Date Time Temp Pulse Resp B/P (MAP) Pulse Ox O2 Delivery O2 Flow Rate FiO2 09/25/17 06:21 97.9 90 18 97/55 (69) 95 09/25/17 00:00 97.2 79 18 106/59 (75) 92 09/24/17 18:46 99 Room Air 09/24/17 18:33 97.8 84 18 131/63 (85) 94 I/O 09/24/17 09/24/17 09/24/17 09/25/17 09/25/17 09/25/17 07:00 15:00 23:00 07:00 15:00 23:00 Intake Total 1000 ml 0 ml Balance 1000 ml 0 ml Intake Oral 0 ml IV Total 1000 ml # Voids 1 Result Diagram: 09/24/17185709/24/171857 Other Results Laboratory Tests Test 09/24/17 18:58 Prothromb Time International Ratio 1.0 RATIO Prothrombin Time 10.4 SEC (9.8-11.6) Imaging Last 24 hours Impressions Tibia/Fibula X-Ray 09/24/171843 Signed Impressions: Service Date/Time: Sunday, September 24, 2017 19:28 - CONCLUSION: Comminuted non-angulated fractures of the distal tibia and fibula with intra-articular extension of one of the tibial fracture lines. Nondisplaced fracture of the proximal fibular metaphysis. Chan Yu MD Tibia/Fibula X-Ray 09/24/171843 Signed Impressions: Service Date/Time: Sunday, September 24, 2017 19:28 - CONCLUSION: Acute fractures of the proximal tibia and fibula with several large comminuted fragments in the proximal tibia. Chan Yu MD Ankle X-Ray 09/24/171843 Signed Impressions: Service Date/Time: Sunday, September 24, 2017 19:28 - CONCLUSION: Comminuted fractures of the distal tibia and fibula. Intra-articular extension of one of the tibial fracture lines. Chan Yu MD Ankle X-Ray 09/24/171843 Signed Impressions: Service Date/Time: Sunday, September 24, 2017 19:28 - CONCLUSION: Internal fixation hardware in the distal leg is grossly intact. Chan Yu MD Chest X-Ray 09/24/17 1842 Signed Impressions: Service Date/Time: Sunday, September 24, 2017 19:36 - CONCLUSION: Patchy left basilar infiltrates and linear atelectasis/scarring right lower lobe. Chan Yu MD Objective Remarks LLE: +short leg splint. intact. NVI RLE: +CKS. minimal swelling. strong DF with no pain. nvi Assessment & Plan Assessment and Plan 1) Right Proximal Tibia Fx 2) Left Distal Tibia/Fibula Fxs -resume diet today -npo after MN -hold lovenox -CT scan of right knee and left ankle to eval fxs -plan for surgery tomorrow with Dr Rouse -official consult to follow Yaakov Hunt/[employer] Sep 25, 2017 07:49
[2017-09-25 08:00] VITALS: BP 132/59; PULSE 94; RESP 18; TEMP 98.1; O2SAT 95
[2017-09-25 08:45] LABS: AUTOMATED NEUTROPHIL # 4.7 TH/MM3 (1.8-7.7); BASOPHIL % 0.6 % (0.0-2.0); EOSINOPHIL # 0.3 TH/MM3 (0-0.4); HEMATOCRIT 34.3 % (35.0-46.0); HEMOGLOBIN 11.2 GM/DL (11.6-15.3); LYMPH % 15.9 % (9.0-44.0); MEAN CELL VOLUME 90.7 FL (80.0-100.0); MEAN CORPUSCULAR HEMOGLOBIN 29.5 PG (27.0-34.0); MEAN CORPUSCULAR HGB CONC 32.5 % (32.0-36.0); MEAN PLATELET VOLUME 7.8 FL (7.0-11.0); MONO % 7.2 % (0.0-8.0); MONOCYTE # 0.5 TH/MM3 (0-0.9); NEUT % 72.3 % (16.0-70.0); PLATELET COUNT 328 TH/MM3 (150-450); RED BLOOD COUNT 3.79 MIL/MM3 (4.00-5.30); RED CELL DISTRIBUTION WIDTH 14.6 % (11.6-17.2); WHITE BLOOD COUNT 6.5 TH/MM3 (4.0-11.0)
[2017-09-25] MEDS: DOCUSATE SODIUM 50 MG/SENNA 8.6 MG TAB PO SCH ×2 (09:00→20:15)
[2017-09-25 09:12] LABS: ALBUMIN 3.1 GM/DL (3.4-5.0); AST (GOT) 26 U/L (15-37); BICARBONATE 27.8 MEQ/L (21.0-32.0); BLOOD UREA NITROGEN 16 MG/DL (7-18); CHLORIDE 106 MEQ/L (98-107); CREATININE 0.47 MG/DL (0.50-1.00); GLOMERULAR FILTRATION RATE 134 ML/MIN (>89); GLUCOSE,RANDOM 83 MG/DL (74-106); SODIUM (NA) 139 MEQ/L (136-145)
[2017-09-25 09:14] LABS: ALT (GPT) 21 U/L (10-53)
[2017-09-25 09:16] LABS: ALKALINE PHOSPHATASE 278 U/L (45-117); TOTAL BILIRUBIN ADULT 0.5 MG/DL (0.2-1.0); TOTAL PROTEIN 6.2 GM/DL (6.4-8.2)
--- NOTE | 2017-09-25 09:45 | RADRPT ---
EXAM DATE/TIME: 09/25/2017 09:15 [facility] COMPARISON: No previous studies available for comparison. INDICATIONS : Left ankle pain. RADIATION DOSE: 7.29 CTDIvol (mGy) MEDICAL HISTORY : None SURGICAL HISTORY : None. ENCOUNTER: Initial ACUITY: 1 day PAIN SCALE: 6/10 LOCATION: Left ankle TECHNIQUE: Volumetric scanning of the ankle was performed. Using automated exposure control and adjustment of t he mA and/or kV according to patient size, radiation dose was kept as low as reasonably achievable to obtain optimal diagnostic quality images. DICOM format image data is available electronically for review and comparison. FINDINGS: There is a impacted and comminuted fracture of the distal tibial metaphysis, slightly posteriorly dis placed with respect to the distal fracture fragment, the fracture extends to the articular surface wh ere there is slight cortical step-off is seen on the order of 1 mm. There is also a comminuted and im pacted fracture of the distal fibular metaphysis. There is bone density is decreased plantar calcanea l spurring identified. no dislocation. CONCLUSION: Distal tibia and fibular fractures are noted as described above. Rj Leo MD on September 25, 2017 at 9:41 Board Certified Radiologist. This report was verified electronically.
[2017-09-25] MEDS: ACETAMINOPHEN/HYDROcodone 325 MG/5 MG TAB PO PRN ×2 (09:47→13:42)
[2017-09-25] MEDS: PANTOPRAZOLE SOD 40 MG DELAYED RELEASE TAB PO SCH (09:47)
[2017-09-25] MEDS: SERTRALINE HCL 100 MG TAB PO SCH (09:47)
--- NOTE | 2017-09-25 09:47 | RADRPT ---
EXAM DATE/TIME: 09/25/2017 09:19 [facility] COMPARISON: ANKLE RIGHT LIMITED (AP&LAT), September 24, 2017, 19:28. INDICATIONS : Right knee pain. RADIATION DOSE: 7.29 CTDIvol (mGy) MEDICAL HISTORY : None SURGICAL HISTORY : None. ENCOUNTER: Initial ACUITY: 1 day PAIN SCALE: 8/10 LOCATION: Right knee TECHNIQUE: Volumetric scanning of the knee was performed. Using automated exposure control and adjustment of th e mA and/or kV according to patient size, radiation dose was kept as low as reasonably achievable to obtain optimal diagnostic quality images. DICOM format image data is available electronically for re view and comparison. FINDINGS: Bone density is diminished. There is a small knee joint effusion. There is a comminuted and impacted fracture of the proximal fibular diaphysis, as well as a transverse slightly impacted fracture throug h the neck of the fibula, and a comminuted and slightly impacted fracture through the proximal tibial metadiaphysis. CONCLUSION: Proximal tibia and fibular fractures. Rj Leo MD on September 25, 2017 at 9:43 Board Certified Radiologist. This report was verified electronically.
[2017-09-25] MEDS: SODIUM CHLORIDE 0.9% FLUSH 10 ML FLUSH IV FLUSH SCH ×2 (09:50→20:16)
[2017-09-25 12:00] VITALS: BP 100/57; PULSE 95; RESP 16; TEMP 96.6; O2SAT 96
[2017-09-25 16:00] VITALS: BP 110/61; PULSE 83; RESP 18; TEMP 98.5; O2SAT 95
--- NOTE | 2017-09-25 16:11 | HHI.PR ---
Subjective Remarks Patient stated her pain is 8 out of 10 she requested to increase her pain meds or change at the Percocet Objective Vitals Vital Signs Date Time Temp Pulse Resp B/P (MAP) Pulse Ox O2 Delivery O2 Flow Rate FiO2 09/25/17 12:00 96.6 95 16 100/57 (71) 96 09/25/17 10:50 18 09/25/17 08:00 98.1 94 18 132/59 (83) 95 09/25/17 06:21 97.9 90 18 97/55 (69) 95 09/25/17 00:00 97.2 79 18 106/59 (75) 92 09/24/17 18:46 99 Room Air 09/24/17 18:33 97.8 84 18 131/63 (85) 94 I/O 09/24/17 09/24/17 09/24/17 09/25/17 09/25/17 09/25/17 07:00 15:00 23:00 07:00 15:00 23:00 Intake Total 1000 ml 0 ml Balance 1000 ml 0 ml Intake Oral 0 ml IV Total 1000 ml # Voids 1 Result Diagram: 09/25/17 0758 09/25/17 0758 Objective Remarks GENERAL: This is a well-nourished, well-developed patient, in no apparent distress. CARDIOVASCULAR: Regular rate and rhythm without murmurs, gallops, or rubs. RESPIRATORY: Clear to auscultation. Breath sounds equal bilaterally. No wheezes , rales, or rhonchi. GASTROINTESTINAL: Abdomen soft, non-tender, nondistended. Normal active bowel sounds MUSCULOSKELETAL: Extremities without clubbing, cyanosis, or edema. No obvious deformities. Decreased ROM of bilateral lower extremities, RLE w/ knee immobilizer, LLE splint. NEUROLOGICAL: Awake, alert and oriented x4. No focal neurologic deficits. Moving both upper and lower extremities spontaneously. A/P Problem List: (1) Fracture, tibia and fibula ICD Code: S82.209A - Unspecified fracture of shaft of unspecified tibia, initial encounter for closed fracture; S82.409A - Unspecified fracture of shaft of unspecified fibula, initial encounter for closed fracture (2) MS (multiple sclerosis) ICD Code: G35 - Multiple sclerosis (3) Tobacco abuse ICD Code: Z72.0 - Tobacco use Assessment and Plan 09/25: Awaiting surgery in a.m., will change Lortab to Percocet per patient request A/P: 1. Bilateral Tib-Fib Fractures: s/p mechanical fall 09/08/17, seen in ER and referred for outpatient Ortho follow up however returns w/ ongoing pain. X-ray w/ bilateral tib-fib fractures, images reviewed by me. Dr. Thompson consulted, plan is for surgical intervention. NPO, IVF, analgesics/antiemetics as needed. Pre-op labs reviewed, essentially unremarkable. 2. MS: Follows w/ Dr. Guan, will consult as needed, no acute flare. Analgesics/antiemetics, resume home medications. 3. Tobacco Abuse: Pt counselled. NicoDerm prn. 4. DVT Prophylaxis: Anticoagulation post op Leno Eugene MD Sep 25, 2017 16:11
[2017-09-25] MEDS: oxyCODONE/ACETAMINOPHEN 5 MG/325 MG TAB PO PRN ×2 (18:23→22:45)
--- NOTE | 2017-09-25 18:33 | EKG ---
Date Performed: 09/24/2017 Time Performed: 19:17:32 PTAGE: 62 years EKG: Sinus rhythm POSSIBLE LEFT ATRIAL ENLARGEMENT BORDERLINE ECG PREVIOUS TRACING : 06/14/2016 09.59 Since the prior tracing, there has been no significant garcia DOCTOR: Farheen Walker Interpretating Date/Time 09/25/2017 18:30:26
[2017-09-25 20:00] VITALS: BP 111/63; PULSE 84; RESP 22; TEMP 98; O2SAT 95
[2017-09-26] VITALS: BP 112/57; PULSE 78; RESP 18; TEMP 97.5; O2SAT 92
[2017-09-26] MEDS ORDERED: LACTATED RINGER'S 1000 ML IV PRN (02:00)
[2017-09-26] MEDS ORDERED: CHLORHEXIDINE GLUCONATE 2 % 1 PACK (2 CLOTHS) TOPICAL PRN (02:00)
[2017-09-26] MEDS ORDERED: POVIDONE IODINE 5% (ANTISEPSIS KIT) 4 APPLICATIONS EACH NARE PRN (02:00)
[2017-09-26] MEDS: oxyCODONE/ACETAMINOPHEN 5 MG/325 MG TAB PO PRN ×3 (03:47→20:29)
[2017-09-26] MEDS: ALPRAZolam 1 MG TAB PO PRN ×2 (07:42→22:57)
[2017-09-26] MEDS: DOCUSATE SODIUM 50 MG/SENNA 8.6 MG TAB PO SCH ×3 (07:42→20:29)
[2017-09-26] MEDS: PANTOPRAZOLE SOD 40 MG DELAYED RELEASE TAB PO SCH (07:42)
[2017-09-26] MEDS: SERTRALINE HCL 100 MG TAB PO SCH (07:43)
--- NOTE | 2017-09-26 07:51 | PD.ORT.PN ---
Subjective Subjective Remarks s/p fall at home right knee pain and left ankle pain history of MS. uses walker to ambulate Objective Vitals Vital Signs Date Time Temp Pulse Resp B/P (MAP) Pulse Ox O2 Delivery O2 Flow Rate FiO2 09/26/17 00:00 97.5 78 18 112/57 (75) 92 09/25/17 20:00 98.0 84 22 111/63 (79) 95 09/25/17 16:00 98.5 83 18 110/61 (77) 95 09/25/17 12:00 96.6 95 16 100/57 (71) 96 09/25/17 10:50 18 09/25/17 08:00 98.1 94 18 132/59 (83) 95 I/O 09/25/17 09/25/17 09/25/17 09/26/17 09/26/17 09/26/17 07:00 15:00 23:00 07:00 15:00 23:00 Intake Total 0 ml 600 ml Balance 0 ml 600 ml Intake Oral 0 ml 600 ml # Voids 1 10 # Bowel Movements 0 Result Diagram: 09/25/17 0758 09/25/17 0758 Imaging Last 24 hours Impressions Tibia/Fibula X-Ray 09/24/171843 Signed Impressions: Service Date/Time: Sunday, September 24, 2017 19:28 - CONCLUSION: Comminuted non-angulated fractures of the distal tibia and fibula with intra-articular extension of one of the tibial fracture lines. Nondisplaced fracture of the proximal fibular metaphysis. Chan Yu MD Tibia/Fibula X-Ray 09/24/171843 Signed Impressions: Service Date/Time: Sunday, September 24, 2017 19:28 - CONCLUSION: Acute fractures of the proximal tibia and fibula with several large comminuted fragments in the proximal tibia. Chan Yu MD Ankle X-Ray 09/24/171843 Signed Impressions: Service Date/Time: Sunday, September 24, 2017 19:28 - CONCLUSION: Comminuted fractures of the distal tibia and fibula. Intra-articular extension of one of the tibial fracture lines. Chan Yu MD Ankle X-Ray 09/24/171843 Signed Impressions: Service Date/Time: Sunday, September 24, 2017 19:28 - CONCLUSION: Internal fixation hardware in the distal leg is grossly intact. Chan Yu MD Chest X-Ray 09/24/17 1842 Signed Impressions: Service Date/Time: Sunday, September 24, 2017 19:36 - CONCLUSION: Patchy left basilar infiltrates and linear atelectasis/scarring right lower lobe. Chan Yu MD Objective Remarks LLE: +short leg splint. intact. NVI RLE: +CKS. minimal swelling. strong DF with no pain. nvi Assessment & Plan Assessment and Plan 1) Right Proximal Tibia Fx 2) Left Distal Tibia/Fibula Fxs -surgery today with Dr Rouse for right proximal tibia and left distal tibia/ fibula Yaakov Hunt/[employer] Sep 26, 2017 07:51
[2017-09-26 08:00] VITALS: BP 105/62; PULSE 78; RESP 17; TEMP 97; O2SAT 94
[2017-09-26] MEDS: SODIUM CHLORIDE 0.9% FLUSH 10 ML FLUSH IV FLUSH SCH ×3 (09:00→20:30)
[2017-09-26 12:00] VITALS: BP 111/56; PULSE 73; RESP 18; TEMP 96.6; O2SAT 97
[2017-09-26] MEDS ORDERED: LIDOCAINE HCL 1% PF 5 ML SYRINGE OTHER ONE (12:00)
[2017-09-26] MEDS ORDERED: PROPOFOL 200 MG/20 ML AMP IV ONE (12:00)
[2017-09-26] MEDS ORDERED: PHENYLEPH/NS 1000 MCG/10 ML SYR IV ONE (12:00)
[2017-09-26] MEDS ORDERED: ONDANSETRON HCL 4 MG/2 ML VIAL IV ONE (12:00)
[2017-09-26] MEDS ORDERED: SODIUM CHLORIDE 0.9% 20 ML VIAL IV ONE (12:00)
[2017-09-26] MEDS ORDERED: DEXAMETHASONE SOD PHOS 4 MG/ML VIAL IV ONE (12:00)
[2017-09-26] MEDS ORDERED: GENTAMICIN SULFATE 80 MG/2 ML VIAL ONE (12:37)
--- NOTE | 2017-09-26 12:43 | HHI.PR ---
Subjective Remarks Resting comfortably in bed No event overnight Denied chest and or short of breath No fever or chills Objective Vitals Vital Signs Date Time Temp Pulse Resp B/P (MAP) Pulse Ox O2 Delivery O2 Flow Rate FiO2 09/26/17 12:00 96.6 73 18 111/56 (74) 97 09/26/17 08:00 97.0 78 17 105/62 (76) 94 09/26/17 00:00 97.5 78 18 112/57 (75) 92 09/25/17 20:00 98.0 84 22 111/63 (79) 95 09/25/17 16:00 98.5 83 18 110/61 (77) 95 I/O 09/25/17 09/25/17 09/25/17 09/26/17 09/26/17 09/26/17 07:00 15:00 23:00 07:00 15:00 23:00 Intake Total 0 ml 600 ml Balance 0 ml 600 ml Intake Oral 0 ml 600 ml # Voids 1 10 # Bowel Movements 0 Result Diagram: 09/25/17 0758 09/25/17 0758 Objective Remarks GENERAL: This is a well-nourished, well-developed patient, in no apparent distress. CARDIOVASCULAR: Regular rate and rhythm without murmurs, gallops, or rubs. RESPIRATORY: Clear to auscultation. Breath sounds equal bilaterally. No wheezes , rales, or rhonchi. GASTROINTESTINAL: Abdomen soft, non-tender, nondistended. Normal active bowel sounds MUSCULOSKELETAL: Extremities without clubbing, cyanosis, or edema. No obvious deformities. Decreased ROM of bilateral lower extremities, RLE w/ knee immobilizer, LLE splint. NEUROLOGICAL: Awake, alert and oriented x4. No focal neurologic deficits. Moving both upper and lower extremities spontaneously. A/P Problem List: (1) Fracture, tibia and fibula ICD Code: S82.209A - Unspecified fracture of shaft of unspecified tibia, initial encounter for closed fracture; S82.409A - Unspecified fracture of shaft of unspecified fibula, initial encounter for closed fracture (2) MS (multiple sclerosis) ICD Code: G35 - Multiple sclerosis (3) Tobacco abuse ICD Code: Z72.0 - Tobacco use Assessment and Plan 09/25: Awaiting surgery in a.m., will change Lortab to Percocet per patient request 09/26: Plan for surgery today, continue current care A/P: 1. Bilateral Tib-Fib Fractures: s/p mechanical fall 09/08/17, seen in ER and referred for outpatient Ortho follow up however returns w/ ongoing pain. X-ray w/ bilateral tib-fib fractures, images reviewed by me. Dr. Thompson consulted, plan is for surgical intervention. NPO, IVF, analgesics/antiemetics as needed. Pre-op labs reviewed, essentially unremarkable. 2. MS: Follows w/ Dr. Guan, will consult as needed, no acute flare. Analgesics/antiemetics, resume home medications. 3. Tobacco Abuse: Pt counselled. NicoDerm prn. 4. DVT Prophylaxis: Anticoagulation post op Leno Eugene MD Sep 26, 2017 12:43
[2017-09-26] MEDS ORDERED: ACETAMINOPHEN 1000 MG/100 ML 100 ML IV ONE (13:37)
[2017-09-26] MEDS ORDERED: SODIUM CHLOR 0.9% 250 ML INJ 250 ML ONE (14:20)
[2017-09-26] MEDS ORDERED: VANCOMYCIN HCL 1000 MG VIAL ONE (14:21)
[2017-09-26] MEDS ORDERED: CLINDAMYCIN PHOS 600 MG/4 ML VIAL ONE (14:26)
[2017-09-26] MEDS ORDERED: HYDROmorphone HCL PF 2 MG/ML VIAL ONE (14:55)
[2017-09-26] MEDS ORDERED: Post-op Orders (for Pharmacy) XX ONE (17:00)
[2017-09-26] MEDS ORDERED: NALOXONE HCL 0.4 MG/ML AMP IV PUSH PRN (17:00)
[2017-09-26] MEDS ORDERED: diphenhydrAMINE HCL 25 MG CAP PO PRN (17:00)
[2017-09-26] MEDS ORDERED: ERGOCALCIFEROL (VIT D2) 50,000 UNIT CAP PO SCH (17:00)
[2017-09-26] MEDS ORDERED: ACETAMINOPHEN/HYDROcodone 325 MG/10 MG TAB PO PRN (17:00)
--- NOTE | 2017-09-26 17:02 | PD.OP ---
cc: Waylon Mcclellan MD Operative Report Date of Surgery: Sep 26, 2017 Preoperative Diagnosis: Right proximal tibia fracture, left distal tibia fracture, left distal fibula fracture Postoperative Diagnosis: Procedure: Open reduction internal fixation right proximal tibia fractures, open reduction internal fixation of left distal tibia pilon fracture Surgeon: Waylon Mcclellan Assurance Manager Insurance(s): Paredep Alexander PA-C The surgical procedure was assisted by my physician bankruptcy assistant. My P.A. presence was necessary throughout this case for the manipulation and positioning of the surgical extremity. My P.A. was assisting me throughout the duration of this procedure. The skill set of a physician bankruptcy assistant was medically necessary to complete this procedure. During the surgical case the surgical clinical reviewer was working at the back table and the physician bankruptcy assistant was directly assisting me. Operation and Findings: Shana was seen and evaluated preoperatively. She is found to have a right proximal tibia fracture and left distal tibia and fibula fractures. Informed consent was obtained for open reduction and internal fixation of right proximal tibia fracture and left distal tibia fracture. Soft tissue was evaluated preoperatively and found to be suitable for surgery. Patient was brought to the operating placed on operating room table. Patient was given IV sedation and general anesthesia. Timeout procedure was performed, and IV antibiotics were given prior to procedure. The right leg was now prepped with alcohol followed by Hibiclens and draped usual sterile fashion. Procedure began with a 4-inch curvilinear incision over the anterolateral knee. Subcutaneous tissue was treated with Bovie. Iliotibial band was split in line with fibers. The fracture was extra-articular. Traction was applied. The fracture was manipulated. Excellent reduction was achieved. K-wires were used for provisional fixation. Fluoroscopy revealed excellent alignment of fracture. A Synthes long proximal tibial plate was selected. The plate was placed percutaneously under the anterior tibialis muscle. The plate was provisionally held with K-wires. 3.5 cortical screws were used compress plate to bone distally, and a periarticular clamp was used to compress the plate to bone proximally. Multiple locking screws were now placed proximally. Additional screws were placed in the shaft. K-wires were removed. Final fluoroscopy showed excellent alignment of fracture with well-placed hardware. The incision was thoroughly irrigated. iliotibial band closed with #1 Vicryl, . Subcutaneous tissues closed with 3-0 Vicryl and skin was closed with gloria. Sterile dressings were applied. Next attention was turned to the left leg. The left leg was prepped with alcohol followed by Hibiclens and draped in usual sterile fashion. A 2 inch incision was now made over the medial aspect of the ankle. Saphenous vein was protected. A full thickness flap was now elevated. The distal medial tibia was now exposed. Attention was now turned towards reduction. The metaphyseal fragments were reduced first. Traction was applied and fracture fragments were manipulated. There were multiple metaphyseal fragments and fracture extended into the articular surface. The fracture was manipulated and excellent reduction was achieved. Fracture tenaculums were used to reduce fractures. Multiple K wires were used to hold provisional fixation. Fluoroscopy confirmed excellent alignment of fractures. A Synthes medial distal tibial plate was selected. Plate was placed percutaneously along the medial aspect of the distal tibia. Plate was provisionally held to bone with K wires. 2.7 cortical screws and 3.5 cortical screws were used to compress plate to bone. Multiple screws were placed into the shaft. Multiple 2.7 locking screws were placed into the distal segment. All screws were predrilled and premeasured for appropriate lengths. Final fluoroscopy revealed well aligned fracture with well -placed hardware. The wound was now thoroughly irrigated. Subcutaneous tissues closed with 3-0 Vicryl and skin was closed with 3-0 nylon. Sterile dressings were applied with Xeroform 4 x 4's soft roll and a well-padded splint.. Needle and sponge counts were correct. Patient was transferred to recovery room in stable condition. Waylon Mcclellan MD Sep 26, 2017 17:02
[2017-09-26] MEDS ORDERED: *MEPERIDINE 25 MG INJ VIAL PERIprocedural Use ONLY ONE (17:19)
[2017-09-26] MEDS ORDERED: *morphine SULFATE 8 MG/ML PERIprocedure ONLY ONE (17:20)
[2017-09-26] MEDS ORDERED: MIDAZOLAM HCL 2 MG/2 ML VIAL ONE (17:20)
[2017-09-26 18:00] VITALS: BP 136/74; PULSE 88; RESP 17; TEMP 96.8; O2SAT 92
[2017-09-26] MEDS ORDERED: DO NOT ADM ANY ANTICOAGULANT DRUGS PRN (18:15)
[2017-09-26] MEDS: LACTATED RINGER'S 1000 ML INJ 1,000 ML IV SCH (18:41)
[2017-09-26] MEDS: CALCIUM/VITAMIN D 250 MG/125 U TAB PO SCH (18:41)
[2017-09-26 20:00] VITALS: BP 109/67; PULSE 86; RESP 22; TEMP 96.9; O2SAT 94
--- NOTE | 2017-09-26 21:38 | RADRPT ---
EXAM DATE/TIME: 09/26/2017 15:37 [facility] COMPARISON: CT KNEE RIGHT W/O CONTRAST, September 25, 2017, 9:19. INDICATIONS : ORIF of the right tibia/fibula. MEDICAL HISTORY : None. SURGICAL HISTORY : None. ENCOUNTER: Subsequent ACUITY: 2 days PAIN SCORE: Non-responsive. LOCATION: Right tibia/fibula FINDINGS: Interim reduction internal fixation of the comminuted proximal shaft fracture of the right tibia. Fix ation consists of a lateral plate and multiple screws. Alignment is near-anatomic. There is a proximal shaft fracture of the right fibula again noted with a slight degree of lateral an gulation deformity. CONCLUSION: Interim screw and plate fixation of the comminuted proximal shaft fracture of the right tibia in near -anatomic alignment. No acute complication demonstrated. Hardeep Valerio MD on September 26, 2017 at 21:35 Board Certified Radiologist. This report was verified electronically.
--- NOTE | 2017-09-26 21:40 | RADRPT ---
EXAM DATE/TIME: 09/26/2017 16:35 [facility] COMPARISON: CT ANKLE LEFT W/O CONTRAST, September 25, 2017, 9:15. TIBIA/FIBULA LEFT (AP/LAT), September 24, 2017, 19:28. INDICATIONS : ORIF of the left distal tibia/fibula. MEDICAL HISTORY : None. SURGICAL HISTORY : None. ENCOUNTER: Subsequent ACUITY: 2 days PAIN SCORE: Non-responsive. LOCATION: Left distal tibia/fibula FINDINGS: Interim upper reduction internal fixation of the comminuted and intra-articular fracture of the dista l left tibia. Alignment is near-anatomic. Fixation consists of a medial plate and multiple screws. Co mminuted distal shaft fracture in of the left fibula without significant displacement again noted. CONCLUSION: Expected radiographic appearance after screw and plate fixation of distal tibial fracture. Near-anato vinicio alignment. Hardeep Valerio MD on September 26, 2017 at 21:36 Board Certified Radiologist. This report was verified electronically.
[2017-09-27] VITALS: BP_SYST 105; BP_SYST 92; BP_DIAS 57; BP_DIAS 59; PULSE 86; RESP 22; TEMP 96.5; O2SAT 93
[2017-09-27] MEDS: HYDROmorphone HCL PF 2 MG/ML VIAL IV PUSH PRN ×3 (00:51→10:41)
[2017-09-27] MEDS: VANCOMYCIN INJ 1,000 MG in SODIUM CHLOR 0.9% 250 ML INJ 250 ML IV SCH ×2 (02:09→13:20)
[2017-09-27] MEDS: LACTATED RINGER'S 1000 ML INJ 1,000 ML IV SCH ×2 (02:14→14:55)
[2017-09-27 04:00] VITALS: BP 119/71; PULSE 80; RESP 20; TEMP 97.1; O2SAT 98
[2017-09-27] MEDS ORDERED: VITA500012 PO (06:54)
[2017-09-27] MEDS ORDERED: CALCTAB19 PO (06:54)
[2017-09-27] MEDS ORDERED: VITA2000 PO (06:54)
[2017-09-27] MEDS ORDERED: XARE10TA PO (06:54)
[2017-09-27] MEDS ORDERED: HYDR-3583 PO (06:54)
[2017-09-27] MEDS ORDERED: WHEEMIS3 (06:54)
[2017-09-27 07:33] LABS: HEMATOCRIT 33.7 % (35.0-46.0); HEMOGLOBIN 11.2 GM/DL (11.6-15.3)
[2017-09-27 08:00] VITALS: BP 106/59; PULSE 97; RESP 19; TEMP 97.4; O2SAT 93
[2017-09-27] MEDS: PANTOPRAZOLE SOD 40 MG DELAYED RELEASE TAB PO SCH (08:46)
[2017-09-27] MEDS: CALCIUM/VITAMIN D 250 MG/125 U TAB PO SCH ×3 (08:46→18:10)
[2017-09-27] MEDS: CHOLECALCIFEROL (VIT D3) 1000 UNIT TAB PO SCH (08:46)
[2017-09-27] MEDS: SERTRALINE HCL 100 MG TAB PO SCH (08:46)
[2017-09-27] MEDS: DOCUSATE SODIUM 50 MG/SENNA 8.6 MG TAB PO SCH ×2 (08:46→20:17)
[2017-09-27] MEDS: SODIUM CHLORIDE 0.9% FLUSH 10 ML FLUSH IV FLUSH SCH ×2 (08:47→20:17)
[2017-09-27] MEDS: ALPRAZolam 1 MG TAB PO PRN ×2 (10:41→18:11)
--- NOTE | 2017-09-27 12:02 | HHI.PR ---
Subjective Remarks Pain is tolerable, patient wants to go home, I explained she can be discharged once cleared by orthopedic Objective Vitals Vital Signs Date Time Temp Pulse Resp B/P (MAP) Pulse Ox O2 Delivery O2 Flow Rate FiO2 09/27/17 08:00 97.4 97 19 106/59 (75) 93 09/27/17 04:00 97.1 80 20 119/71 (87) 98 09/27/17 00:00 96.5 86 22 92/59 (70) 93 09/26/17 20:00 96.9 86 22 109/67 (81) 94 09/26/17 18:00 96.8 88 17 136/74 (94) 92 09/26/17 17:55 98.4 79 14 94 Nasal Cannula 2 09/26/17 17:45 81 14 115/57 (76) 95 Nasal Cannula 2 09/26/17 17:30 81 12 114/61 (78) 94 Nasal Cannula 2 09/26/17 17:15 79 14 162/74 (103) 95 Nasal Cannula 2 09/26/17 17:11 98.0 75 14 140/62 (88) 96 Nasal Cannula 2 I/O 09/26/17 09/26/17 09/26/17 09/27/17 09/27/17 09/27/17 07:00 15:00 23:00 07:00 15:00 23:00 Intake Total 700 ml 360 ml 250 ml Output Total 50 ml Balance 650 ml 360 ml 250 ml Intake Oral 0 ml 360 ml IV Total 250 ml Other 700 ml Estimated Blood Loss 50 ml # Voids 3 4 # Bowel Movements 0 0 Result Diagram: 09/27/17 0547 09/25/17 0758 Objective Remarks GENERAL: This is a well-nourished, well-developed patient, in no apparent distress. CARDIOVASCULAR: Regular rate and rhythm without murmurs, gallops, or rubs. RESPIRATORY: Clear to auscultation. Breath sounds equal bilaterally. No wheezes , rales, or rhonchi. GASTROINTESTINAL: Abdomen soft, non-tender, nondistended. Normal active bowel sounds MUSCULOSKELETAL: Extremities without clubbing, cyanosis, or edema. No obvious deformities. Decreased ROM of bilateral lower extremities, RLE w/ knee immobilizer, LLE splint. NEUROLOGICAL: Awake, alert and oriented x4. No focal neurologic deficits. Moving both upper and lower extremities spontaneously. A/P Problem List: (1) Fracture, tibia and fibula ICD Code: S82.209A - Unspecified fracture of shaft of unspecified tibia, initial encounter for closed fracture; S82.409A - Unspecified fracture of shaft of unspecified fibula, initial encounter for closed fracture (2) MS (multiple sclerosis) ICD Code: G35 - Multiple sclerosis (3) Tobacco abuse ICD Code: Z72.0 - Tobacco use Assessment and Plan 09/25: Awaiting surgery in a.m., will change Lortab to Percocet per patient request 09/26: Plan for surgery today, continue current care 09/27: Status post surgical repair, continue current care, PT OT, pain management , discharge once cleared by Ortho A/P: 1. Bilateral Tib-Fib Fractures: s/p mechanical fall 09/08/17, seen in ER and referred for outpatient Ortho follow up however returns w/ ongoing pain. X-ray w/ bilateral tib-fib fractures, images reviewed by me. Dr. Thompson consulted, plan is for surgical intervention. NPO, IVF, analgesics/antiemetics as needed. Pre-op labs reviewed, essentially unremarkable. 2. MS: Follows w/ Dr. Guan, will consult as needed, no acute flare. Analgesics/antiemetics, resume home medications. 3. Tobacco Abuse: Pt counselled. NicoDerm prn. 4. DVT Prophylaxis: Anticoagulation post op Leno Eugene MD Sep 27, 2017 12:02
[2017-09-27] MEDS: oxyCODONE/ACETAMINOPHEN 10 MG/325 MG TAB PO PRN ×2 (14:54→20:17)
[2017-09-27] MEDS: ENOXAPARIN SODIUM 40 MG/0.4 ML SYRINGE SQ SCH (14:54)
[2017-09-27 16:00] VITALS: BP 94/55; PULSE 88; RESP 17; TEMP 96.8; O2SAT 92
[2017-09-27 20:00] VITALS: BP 116/68; PULSE 81; RESP 17; TEMP 98.9; O2SAT 98
[2017-09-28] MEDS: oxyCODONE/ACETAMINOPHEN 10 MG/325 MG TAB PO PRN ×5 (03:23→20:49)
[2017-09-28] MEDS: LACTATED RINGER'S 1000 ML INJ 1,000 ML IV SCH ×2 (05:54→16:55)
--- NOTE | 2017-09-28 07:14 | PD.ORT.PN ---
Subjective Subjective Remarks POD 2 s/p ORIF right proximal tibia POd 2 s/p ORIF left distal tibia doign well. pain controlled. no complaints Objective Vitals Vital Signs Date Time Temp Pulse Resp B/P (MAP) Pulse Ox O2 Delivery O2 Flow Rate FiO2 09/28/17 05:00 20 09/27/17 20:00 98.9 81 17 116/68 (84) 98 09/27/17 16:00 96.8 88 17 94/55 (68) 92 09/27/17 08:00 97.4 97 19 106/59 (75) 93 I/O 09/27/17 09/27/17 09/27/17 09/28/17 09/28/17 09/28/17 07:00 15:00 23:00 07:00 15:00 23:00 Intake Total 360 ml 500 ml 1070 ml 240 ml Balance 360 ml 500 ml 1070 ml 240 ml Intake Oral 360 ml 1070 ml 240 ml IV Total 500 ml # Voids 4 6 5 # Bowel Movements 0 0 0 Result Diagram: 09/27/17 0547 09/25/17 0758 Imaging Last 24 hours Impressions Tibia/Fibula X-Ray 09/24/171843 Signed Impressions: Service Date/Time: Sunday, September 24, 2017 19:28 - CONCLUSION: Comminuted non-angulated fractures of the distal tibia and fibula with intra-articular extension of one of the tibial fracture lines. Nondisplaced fracture of the proximal fibular metaphysis. Chan Yu MD Tibia/Fibula X-Ray 09/24/171843 Signed Impressions: Service Date/Time: Sunday, September 24, 2017 19:28 - CONCLUSION: Acute fractures of the proximal tibia and fibula with several large comminuted fragments in the proximal tibia. Chan Yu MD Ankle X-Ray 09/24/171843 Signed Impressions: Service Date/Time: Sunday, September 24, 2017 19:28 - CONCLUSION: Comminuted fractures of the distal tibia and fibula. Intra-articular extension of one of the tibial fracture lines. Chan Yu MD Ankle X-Ray 09/24/171843 Signed Impressions: Service Date/Time: Sunday, September 24, 2017 19:28 - CONCLUSION: Internal fixation hardware in the distal leg is grossly intact. Chan Yu MD Chest X-Ray 09/24/17 1842 Signed Impressions: Service Date/Time: Sunday, September 24, 2017 19:36 - CONCLUSION: Patchy left basilar infiltrates and linear atelectasis/scarring right lower lobe. Chan Yu MD Objective Remarks LLE: +short leg splint. intact. NVI RLE: minimal swelling. strong DF with no pain. nvi. derssings clean and dry. Assessment & Plan Assessment and Plan 1) Right Proximal Tibia Fx s/p ORIF - POD 2 2) Left Distal Tibia/Fibula Fxs s/p ORIF - POD 2 RLE - NWB. no quad sets or leg lifts. PROM 0-90deg. no knee brace needed. daily dressing changes of knee. LLE - NWB. maintain splint at all times. -CM for rehab placement. -DVT prophylaxis -f/u with [facility] or [facility] in 2 weeks Yaakov Hunt/Bdr BARBY Sep 28, 2017 07:14
[2017-09-28] MEDS: PANTOPRAZOLE SOD 40 MG DELAYED RELEASE TAB PO SCH (07:50)
[2017-09-28] MEDS: CHOLECALCIFEROL (VIT D3) 1000 UNIT TAB PO SCH (07:50)
[2017-09-28] MEDS: DOCUSATE SODIUM 50 MG/SENNA 8.6 MG TAB PO SCH ×2 (07:50→20:50)
[2017-09-28] MEDS: CALCIUM/VITAMIN D 250 MG/125 U TAB PO SCH ×3 (07:50→16:56)
[2017-09-28] MEDS: SERTRALINE HCL 100 MG TAB PO SCH (07:50)
[2017-09-28] MEDS: SODIUM CHLORIDE 0.9% FLUSH 10 ML FLUSH IV FLUSH SCH ×2 (07:51→20:50)
[2017-09-28 08:00] VITALS: BP 112/59; PULSE 80; RESP 16; TEMP 96.5; O2SAT 95
--- NOTE | 2017-09-28 10:19 | HHI.FF ---
Face to Face Verification Diagnosis: (1) Closed fracture of distal end of left fibula and tibia (2) Closed fracture of proximal end of right tibia and fibula (3) MS (multiple sclerosis) (4) Tobacco abuse Physical Therapy Order: Evaluate and Treat Occupational Therapy Order: Evaluate and Treat Home Health Nursing Order: Medical education Nursing assessment with vital signs I have seen patient Shana Hughes on 09/28/17. My clinical findings support the need for the requested home health care services because: Ltd mobility - disease progression Deconditioned w/ increased weakness I certify that my clinical findings support that this patient is homebound because: Post-op weakness Unsafe to leave home unassisted (NWB on RLL) Leno Eugene MD Sep 28, 2017 10:19
[2017-09-28 12:00] VITALS: BP 119/61; PULSE 94; RESP 16; TEMP 97.4; O2SAT 92
[2017-09-28] MEDS: ALPRAZolam 1 MG TAB PO PRN ×2 (15:17→22:48)
[2017-09-28] MEDS: ENOXAPARIN SODIUM 40 MG/0.4 ML SYRINGE SQ SCH (15:18)
[2017-09-28 16:00] VITALS: BP 99/55; PULSE 82; RESP 16; TEMP 96.2; O2SAT 96
--- NOTE | 2017-09-28 17:43 | HHI.PR ---
Subjective Remarks Patient resting in bed still complaining of pain in herLeg she is not happy to go to rehab, "I will care I know how it goes there " Objective Vitals Vital Signs Date Time Temp Pulse Resp B/P (MAP) Pulse Ox O2 Delivery O2 Flow Rate FiO2 09/28/17 16:00 96.2 82 16 99/55 (70) 96 09/28/17 12:00 97.4 94 16 119/61 (80) 92 09/28/17 08:52 17 09/28/17 08:00 96.5 80 16 112/59 (76) 95 09/27/17 20:00 98.9 81 17 116/68 (84) 98 I/O 09/27/17 09/27/17 09/27/17 09/28/17 09/28/17 09/28/17 07:00 15:00 23:00 07:00 15:00 23:00 Intake Total 360 ml 500 ml 1070 ml 240 ml Balance 360 ml 500 ml 1070 ml 240 ml Intake Oral 360 ml 1070 ml 240 ml IV Total 500 ml # Voids 4 6 5 # Bowel Movements 0 0 0 Result Diagram: 09/27/17 0547 09/25/17 0758 Objective Remarks GENERAL: This is a well-nourished, well-developed patient, in no apparent distress. CARDIOVASCULAR: Regular rate and rhythm without murmurs, gallops, or rubs. RESPIRATORY: Clear to auscultation. Breath sounds equal bilaterally. No wheezes , rales, or rhonchi. GASTROINTESTINAL: Abdomen soft, non-tender, nondistended. Normal active bowel sounds MUSCULOSKELETAL: Extremities without clubbing, cyanosis, or edema. No obvious deformities. Decreased ROM of bilateral lower extremities, RLE w/ knee immobilizer, LLE splint. NEUROLOGICAL: Awake, alert and oriented x4. No focal neurologic deficits. Moving both upper and lower extremities spontaneously. A/P Problem List: (1) Fracture, tibia and fibula ICD Code: S82.209A - Unspecified fracture of shaft of unspecified tibia, initial encounter for closed fracture; S82.409A - Unspecified fracture of shaft of unspecified fibula, initial encounter for closed fracture (2) MS (multiple sclerosis) ICD Code: G35 - Multiple sclerosis (3) Tobacco abuse ICD Code: Z72.0 - Tobacco use Assessment and Plan 09/25: Awaiting surgery in a.m., will change Lortab to Percocet per patient request 09/26: Plan for surgery today, continue current care 09/27: Status post surgical repair, continue current care, PT OT, pain management , discharge once cleared by Ortho 09/28: Stable she is not happy about going to rehab, continue PT OT, discharge once cleared by Ortho mostly tomorrow A/P: 1. Bilateral Tib-Fib Fractures: s/p mechanical fall 09/08/17, seen in ER and referred for outpatient Ortho follow up however returns w/ ongoing pain. X-ray w/ bilateral tib-fib fractures, images reviewed by me. Dr. Thompson consulted, plan is for surgical intervention. NPO, IVF, analgesics/antiemetics as needed. Pre-op labs reviewed, essentially unremarkable. 2. MS: Follows w/ Dr. Guan, will consult as needed, no acute flare. Analgesics/antiemetics, resume home medications. 3. Tobacco Abuse: Pt counselled. NicoDerm prn. 4. DVT Prophylaxis: Anticoagulation post op Discharge Planning Once cleared by Ortho to rehab mostly tomorrow Leno Eugene MD Sep 28, 2017 17:43
[2017-09-28 20:00] VITALS: BP 96/61; PULSE 78; RESP 17; TEMP 95.4; O2SAT 93
[2017-09-29] VITALS: BP 104/67; PULSE 74; RESP 17; TEMP 96; O2SAT 95
[2017-09-29] MEDS: oxyCODONE/ACETAMINOPHEN 10 MG/325 MG TAB PO PRN ×4 (04:09→21:08)
[2017-09-29] MEDS: LACTATED RINGER'S 1000 ML INJ 1,000 ML IV SCH ×2 (07:30→19:56)
[2017-09-29 08:00] VITALS: BP 108/58; PULSE 68; RESP 16; TEMP 98.9; O2SAT 97
[2017-09-29] MEDS: SODIUM CHLORIDE 0.9% FLUSH 10 ML FLUSH IV FLUSH SCH ×2 (08:21→19:56)
[2017-09-29] MEDS: DOCUSATE SODIUM 50 MG/SENNA 8.6 MG TAB PO SCH ×2 (08:21→19:55)
[2017-09-29] MEDS: CHOLECALCIFEROL (VIT D3) 1000 UNIT TAB PO SCH (08:23)
[2017-09-29] MEDS: CALCIUM/VITAMIN D 250 MG/125 U TAB PO SCH ×3 (08:23→17:03)
[2017-09-29] MEDS: PANTOPRAZOLE SOD 40 MG DELAYED RELEASE TAB PO SCH (08:23)
[2017-09-29] MEDS: SERTRALINE HCL 100 MG TAB PO SCH (08:23)
[2017-09-29 12:00] VITALS: BP 88/52; PULSE 71; RESP 16; TEMP 97.9; O2SAT 94
[2017-09-29] MEDS: ALPRAZolam 1 MG TAB PO PRN (12:46)
[2017-09-29 16:00] VITALS: BP 131/73; PULSE 96; RESP 17; TEMP 96.8; O2SAT 95
[2017-09-29] MEDS: ENOXAPARIN SODIUM 40 MG/0.4 ML SYRINGE SQ SCH (17:03)
[2017-09-29 20:00] VITALS: BP 103/62; PULSE 81; RESP 18; TEMP 96.8; O2SAT 94
--- NOTE | 2017-09-29 23:29 | HHI.PR ---
Subjective Remarks Patient seen and examined earlier today Pain is tolerable Initially the plan was to discharge her to snack today Objective Vitals Vital Signs Date Time Temp Pulse Resp B/P (MAP) Pulse Ox O2 Delivery O2 Flow Rate FiO2 09/29/17 20:00 96.8 81 18 103/62 (76) 94 09/29/17 16:00 96.8 96 17 131/73 (92) 95 09/29/17 12:00 97.9 71 16 88/52 (64) 94 09/29/17 08:00 98.9 68 16 108/58 (75) 97 09/29/17 00:00 96.0 74 17 104/67 (79) 95 I/O 09/29/17 09/29/17 09/29/17 09/30/17 09/30/17 09/30/17 07:00 15:00 23:00 07:00 15:00 23:00 Intake Total 240 ml 1000 ml Output Total 7 ml Balance 240 ml 993 ml Intake Oral 240 ml 1000 ml Output Urine Total 7 ml # Voids 3 # Bowel Movements 1 Result Diagram: 09/27/17 0547 09/25/17 0758 Objective Remarks GENERAL: This is a well-nourished, well-developed patient, in no apparent distress. CARDIOVASCULAR: Regular rate and rhythm without murmurs, gallops, or rubs. RESPIRATORY: Clear to auscultation. Breath sounds equal bilaterally. No wheezes , rales, or rhonchi. GASTROINTESTINAL: Abdomen soft, non-tender, nondistended. Normal active bowel sounds MUSCULOSKELETAL: Extremities without clubbing, cyanosis, or edema. No obvious deformities. Decreased ROM of bilateral lower extremities, RLE w/ knee immobilizer, LLE splint. NEUROLOGICAL: Awake, alert and oriented x4. No focal neurologic deficits. Moving both upper and lower extremities spontaneously. A/P Problem List: (1) Fracture, tibia and fibula ICD Code: S82.209A - Unspecified fracture of shaft of unspecified tibia, initial encounter for closed fracture; S82.409A - Unspecified fracture of shaft of unspecified fibula, initial encounter for closed fracture (2) MS (multiple sclerosis) ICD Code: G35 - Multiple sclerosis (3) Tobacco abuse ICD Code: Z72.0 - Tobacco use Assessment and Plan 1. Bilateral Tib-Fib Fractures: s/p mechanical fall 09/08/17, also consulted status post surgical repair x-ray w/ bilateral tib-fib fractures,. analgesics/ antiemetics as needed. 2. MS: Follows w/ Dr. Guan, will consult as needed, no acute flare. Analgesics/antiemetics, resume home medications. 3. Tobacco Abuse: Pt counselled. NicoDerm prn. 4. DVT Prophylaxis: Anticoagulation post op 09/29: Initially plan was to discharge patient to [facility], order an medication discharge in place however case briefer informed me that patient got denied going to [facility] due to not being cooperative with physical therapy while she was in the hospital, further plan for discharge tomorrow by case briefer Discharge Planning Once cleared by Ortho to rehab mostly tomorrow Leno Eugene MD Sep 29, 2017 23:29
[2017-09-30] VITALS: BP 119/60; PULSE 76; RESP 17; TEMP 96; O2SAT 95
[2017-09-30] MEDS: oxyCODONE/ACETAMINOPHEN 10 MG/325 MG TAB PO PRN ×4 (05:56→22:31)
[2017-09-30] MEDS: ALPRAZolam 1 MG TAB PO PRN ×2 (05:56→15:04)
[2017-09-30 08:00] VITALS: BP 101/55; PULSE 78; RESP 21; TEMP 97.3; O2SAT 93
--- NOTE | 2017-09-30 08:00 | HHI.DCPOC ---
Discharge Care Plan Diagnosis: (1) Closed fracture of proximal end of right tibia and fibula (2) Closed fracture of distal end of left fibula and tibia Your Health Problems Are: Difficulty with ADL Exercise Tolerance Goals to Promote Your Health * To prevent worsening of your condition and complications * To maintain your health at the optimal level Directions to Meet Your Goals Take your medications as prescribed Follow your dietary instruction Follow activity as directed Keep your appointments as scheduled Take your immunizations and boosters as scheduled If your symptoms worsen call your PCP, if no PCP go to Urgent Care Center or Emergency Room Smoking is Dangerous to Your Health. Avoid second hand smoke Call the 24-hour hour crisis hotline for domestic abuse at Lowell Holt MD Sep 30, 2017 07:59
[2017-09-30] MEDS ORDERED: XANA1TAB2 PO (08:02)
[2017-09-30] MEDS: LACTATED RINGER'S 1000 ML INJ 1,000 ML IV SCH (08:30)
[2017-09-30] MEDS: DOCUSATE SODIUM 50 MG/SENNA 8.6 MG TAB PO SCH ×3 (09:00→21:00)
[2017-09-30] MEDS: PANTOPRAZOLE SOD 40 MG DELAYED RELEASE TAB PO SCH (09:20)
[2017-09-30] MEDS: CHOLECALCIFEROL (VIT D3) 1000 UNIT TAB PO SCH (09:20)
[2017-09-30] MEDS: SERTRALINE HCL 100 MG TAB PO SCH (09:20)
[2017-09-30] MEDS: CALCIUM/VITAMIN D 250 MG/125 U TAB PO SCH ×3 (09:20→18:52)
[2017-09-30] MEDS: SODIUM CHLORIDE 0.9% FLUSH 10 ML FLUSH IV FLUSH SCH ×2 (09:21→21:00)
[2017-09-30 12:00] VITALS: BP 96/58; PULSE 75; RESP 18; TEMP 96.5; O2SAT 95
--- NOTE | 2017-09-30 12:19 | HHI.PR ---
Subjective Remarks F/u ortho injuries. No new complaints. Agrees with rehab but getting impatient waiting insurance approval dw RN Objective Vitals Vital Signs Date Time Temp Pulse Resp B/P (MAP) Pulse Ox O2 Delivery O2 Flow Rate FiO2 09/30/17 08:00 97.3 78 21 101/55 (70) 93 09/30/17 00:00 96.0 76 17 119/60 (79) 95 09/29/17 20:00 96.8 81 18 103/62 (76) 94 09/29/17 16:00 96.8 96 17 131/73 (92) 95 I/O 09/29/17 09/29/17 09/29/17 09/30/17 09/30/17 09/30/17 07:00 15:00 23:00 07:00 15:00 23:00 Intake Total 240 ml 1000 ml 240 ml Output Total 7 ml Balance 240 ml 993 ml 240 ml Intake Oral 240 ml 1000 ml 240 ml Output Urine Total 7 ml # Voids 3 4 # Bowel Movements 1 Result Diagram: 09/27/17 0547 Imaging Last Impressions Tibia/Fibula X-Ray 09/26/17 0000 Signed Impressions: Service Date/Time: Tuesday, September 26, 2017 15:37 - CONCLUSION: Interim screw and plate fixation of the comminuted proximal shaft fracture of the right tibia in near-anatomic alignment. No acute complication demonstrated. Hardeep Valerio MD Lower Extremity CT 09/25/17 0000 Signed Impressions: Service Date/Time: Monday, September 25, 2017 09:19 - CONCLUSION: Proximal tibia and fibular fractures. Rj Leo MD Ankle X-Ray 09/24/17 1844 Signed Impressions: Service Date/Time: Sunday, September 24, 2017 19:28 - CONCLUSION: Comminuted fractures of the distal tibia and fibula. Intra-articular extension of one of the tibial fracture lines. Chan Yu MD Chest X-Ray 09/24/17 184 Signed Impressions: Service Date/Time: Sunday, September 24, 2017 19:36 - CONCLUSION: Patchy left basilar infiltrates and linear atelectasis/scarring right lower lobe. Chan Yu MD Objective Remarks GENERAL: This is a well-nourished, well-developed patient, in no apparent distress. CARDIOVASCULAR: Regular rate and rhythm without murmurs, gallops, or rubs. RESPIRATORY: Clear to auscultation. Breath sounds equal bilaterally. No wheezes , rales, or rhonchi. GASTROINTESTINAL: Abdomen soft, non-tender, nondistended. Normal active bowel sounds MUSCULOSKELETAL: Short leg splint left lower extremity, dry dressing right lower extremity. Neurovascularly intact NEUROLOGICAL: Awake, alert and oriented x4. No focal neurologic deficits. Moving both upper and lower extremities spontaneously. Procedures Open reduction internal fixation right proximal tibia fractures, open reduction internal fixation of left distal tibia pilon fracture A/P Problem List: (1) Fracture, tibia and fibula ICD Code: S82.209A - Unspecified fracture of shaft of unspecified tibia, initial encounter for closed fracture; S82.409A - Unspecified fracture of shaft of unspecified fibula, initial encounter for closed fracture (2) MS (multiple sclerosis) ICD Code: G35 - Multiple sclerosis (3) Tobacco abuse ICD Code: Z72.0 - Tobacco use Assessment and Plan 1. Bilateral Tib-Fib Fractures from a fall status post repair. She is stable continue postoperative care, pain management counseled regarding narcotics, wound care, physical therapy and DVT prophylaxis with Lovenox. 2. MS: Follows w/ Dr. Guan, will consult as needed, no acute flare. 3. Tobacco Abuse: Pt counselled. NicoDerm prn. 4. Anemia secondary to acute blood loss. Hemodynamically stable Medically stable for discharge pending placement Lowell Holt MD Sep 30, 2017 12:19
[2017-09-30] MEDS: ENOXAPARIN SODIUM 40 MG/0.4 ML SYRINGE SQ SCH (15:01)
[2017-09-30 16:00] VITALS: BP 95/57; PULSE 80; RESP 17; TEMP 97.3; O2SAT 95
[2017-09-30 20:00] VITALS: BP 96/53; PULSE 82; RESP 18; TEMP 97.4; O2SAT 97
[2017-10-01] VITALS: BP 98/53; PULSE 72; RESP 17; TEMP 97.7; O2SAT 97
[2017-10-01] MEDS: oxyCODONE/ACETAMINOPHEN 10 MG/325 MG TAB PO PRN ×5 (05:22→22:37)
[2017-10-01 08:00] VITALS: BP 99/57; PULSE 75; RESP 18; TEMP 97; O2SAT 97
[2017-10-01] MEDS: DOCUSATE SODIUM 50 MG/SENNA 8.6 MG TAB PO SCH ×2 (09:00→20:21)
[2017-10-01] MEDS: CHOLECALCIFEROL (VIT D3) 1000 UNIT TAB PO SCH (09:52)
[2017-10-01] MEDS: CALCIUM/VITAMIN D 250 MG/125 U TAB PO SCH ×3 (09:52→16:49)
[2017-10-01] MEDS: SERTRALINE HCL 100 MG TAB PO SCH (09:52)
[2017-10-01] MEDS: PANTOPRAZOLE SOD 40 MG DELAYED RELEASE TAB PO SCH (09:52)
[2017-10-01] MEDS: SODIUM CHLORIDE 0.9% FLUSH 10 ML FLUSH IV FLUSH SCH ×2 (09:55→20:21)
[2017-10-01] MEDS: ALPRAZolam 1 MG TAB PO PRN ×2 (11:35→22:37)
--- NOTE | 2017-10-01 15:09 | HHI.PR ---
Subjective Remarks F/u ortho injuries. Dw PT cleared for dc to home but pt has no good support not a safe dc. Dw CM awaiting SNF approval Objective Vitals Vital Signs Date Time Temp Pulse Resp B/P (MAP) Pulse Ox O2 Delivery O2 Flow Rate FiO2 10/01/17 08:00 97.0 75 18 99/57 (71) 97 10/01/17 06:22 18 10/01/17 00:00 97.7 72 17 98/53 (68) 97 09/30/17 20:00 97.4 82 18 96/53 (67) 97 09/30/17 16:00 97.3 80 17 95/57 (70) 95 I/O 09/30/17 09/30/17 09/30/17 10/01/17 10/01/17 10/01/17 07:00 15:00 23:00 07:00 15:00 23:00 Intake Total 240 ml 545 ml 760 ml Balance 240 ml 545 ml 760 ml Intake Oral 240 ml 545 ml 760 ml # Voids 4 10 3 # Bowel Movements 6 0 Result Diagram: 09/27/17 0547 Imaging Last Impressions Tibia/Fibula X-Ray 09/26/17 0000 Signed Impressions: Service Date/Time: Tuesday, September 26, 2017 15:37 - CONCLUSION: Interim screw and plate fixation of the comminuted proximal shaft fracture of the right tibia in near-anatomic alignment. No acute complication demonstrated. Hardeep Valerio MD Lower Extremity CT 09/25/17 0000 Signed Impressions: Service Date/Time: Monday, September 25, 2017 09:19 - CONCLUSION: Proximal tibia and fibular fractures. Rj Leo MD Ankle X-Ray 09/24/17 1844 Signed Impressions: Service Date/Time: Sunday, September 24, 2017 19:28 - CONCLUSION: Comminuted fractures of the distal tibia and fibula. Intra-articular extension of one of the tibial fracture lines. Chan Yu MD Chest X-Ray 09/24/17 1842 Signed Impressions: Service Date/Time: Sunday, September 24, 2017 19:36 - CONCLUSION: Patchy left basilar infiltrates and linear atelectasis/scarring right lower lobe. Chan Yu MD Objective Remarks GENERAL: This is a well-nourished, well-developed patient, in no apparent distress. CARDIOVASCULAR: Regular rate and rhythm without murmurs, gallops, or rubs. RESPIRATORY: Clear to auscultation. Breath sounds equal bilaterally. No wheezes , rales, or rhonchi. GASTROINTESTINAL: Abdomen soft, non-tender, nondistended. Normal active bowel sounds MUSCULOSKELETAL: Short leg splint left lower extremity, dry dressing right lower extremity. Neurovascularly intact NEUROLOGICAL: Awake, alert and oriented x4. No focal neurologic deficits. Moving both upper and lower extremities spontaneously. Procedures Open reduction internal fixation right proximal tibia fractures, open reduction internal fixation of left distal tibia pilon fracture A/P Problem List: (1) Fracture, tibia and fibula ICD Code: S82.209A - Unspecified fracture of shaft of unspecified tibia, initial encounter for closed fracture; S82.409A - Unspecified fracture of shaft of unspecified fibula, initial encounter for closed fracture (2) MS (multiple sclerosis) ICD Code: G35 - Multiple sclerosis (3) Tobacco abuse ICD Code: Z72.0 - Tobacco use Assessment and Plan 1. Bilateral Tib-Fib Fractures from a fall status post repair. She is stable continue postoperative care, pain management counseled regarding narcotics, wound care, physical therapy and DVT prophylaxis with Lovenox. 2. MS: Follows w/ Dr. Guan, will consult as needed, no acute flare. 3. Tobacco Abuse: Pt counselled. NicoDerm prn. 4. Anemia secondary to acute blood loss. Hemodynamically stable Medically stable for discharge pending placement. Abdulaziz SANDOVAL provided n my contact number for peer to peer review of case Lowell Holt MD Oct 01, 2017 15:09
[2017-10-01 16:00] VITALS: BP 98/58; PULSE 77; RESP 18; TEMP 97.3; O2SAT 93
[2017-10-01] MEDS: ENOXAPARIN SODIUM 40 MG/0.4 ML SYRINGE SQ SCH (16:50)
[2017-10-01 20:00] VITALS: BP 114/58; PULSE 78; RESP 15; TEMP 96.5; O2SAT 95
[2017-10-02] MEDS: oxyCODONE/ACETAMINOPHEN 10 MG/325 MG TAB PO PRN ×2 (03:01→12:35)
[2017-10-02] MEDS: ALPRAZolam 1 MG TAB PO PRN (06:01)
[2017-10-02 08:00] VITALS: BP 109/63; PULSE 73; RESP 18; TEMP 97.9; O2SAT 94
[2017-10-02] MEDS: SODIUM CHLORIDE 0.9% FLUSH 10 ML FLUSH IV FLUSH SCH (09:00)
[2017-10-02] MEDS: DOCUSATE SODIUM 50 MG/SENNA 8.6 MG TAB PO SCH (09:00)
[2017-10-02] MEDS: CALCIUM/VITAMIN D 250 MG/125 U TAB PO SCH ×2 (09:03→12:35)
[2017-10-02] MEDS: CHOLECALCIFEROL (VIT D3) 1000 UNIT TAB PO SCH (09:03)
[2017-10-02] MEDS: PANTOPRAZOLE SOD 40 MG DELAYED RELEASE TAB PO SCH (09:04)
[2017-10-02] MEDS: SERTRALINE HCL 100 MG TAB PO SCH (09:05)
--- NOTE | 2017-10-02 11:25 | HHI.PR ---
Subjective Remarks Follow-up bilateral lower extremity fracture. Patient has no new complaints. She is independent with transfers. States she will have help at home and feels safe to be discharged home. Discussed with case management, insurance has denied residential facility admission states not medically warranted despite [id number] review of case. Objective Vitals Vital Signs Date Time Temp Pulse Resp B/P (MAP) Pulse Ox O2 Delivery O2 Flow Rate FiO2 10/02/17 00:48 18 10/01/17 20:00 96.5 78 15 114/58 (76) 95 10/01/17 16:00 97.3 77 18 98/58 (71) 93 I/O 10/01/17 10/01/17 10/01/17 10/02/17 10/02/17 10/02/17 07:00 15:00 23:00 07:00 15:00 23:00 Intake Total 760 ml 525 ml 480 ml Balance 760 ml 525 ml 480 ml Intake Oral 760 ml 525 ml 480 ml # Voids 3 5 2 # Bowel Movements 0 7 0 Imaging Last Impressions Tibia/Fibula X-Ray 09/26/17 0000 Signed Impressions: Service Date/Time: Tuesday, September 26, 2017 15:37 - CONCLUSION: Interim screw and plate fixation of the comminuted proximal shaft fracture of the right tibia in near-anatomic alignment. No acute complication demonstrated. Hardeep Valerio MD Lower Extremity CT 09/25/17 0000 Signed Impressions: Service Date/Time: Monday, September 25, 2017 09:19 - CONCLUSION: Proximal tibia and fibular fractures. Rj Leo MD Ankle X-Ray 09/24/17 1844 Signed Impressions: Service Date/Time: Sunday, September 24, 2017 19:28 - CONCLUSION: Comminuted fractures of the distal tibia and fibula. Intra-articular extension of one of the tibial fracture lines. Chan Yu MD Chest X-Ray 09/24/17 1842 Signed Impressions: Service Date/Time: Sunday, September 24, 2017 19:36 - CONCLUSION: Patchy left basilar infiltrates and linear atelectasis/scarring right lower lobe. Chan Yu MD Objective Remarks GENERAL: This is a well-nourished, well-developed patient, in no apparent distress. CARDIOVASCULAR: Regular rate and rhythm without murmurs, gallops, or rubs. RESPIRATORY: Clear to auscultation. Breath sounds equal bilaterally. No wheezes , rales, or rhonchi. GASTROINTESTINAL: Abdomen soft, non-tender, nondistended. Normal active bowel sounds MUSCULOSKELETAL: Short leg splint left lower extremity, dry dressing right lower extremity. Neurovascularly intact NEUROLOGICAL: Awake, alert and oriented x4. No focal neurologic deficits. Moving both upper and lower extremities spontaneously. Procedures Open reduction internal fixation right proximal tibia fractures, open reduction internal fixation of left distal tibia pilon fracture A/P Problem List: (1) Fracture, tibia and fibula ICD Code: S82.209A - Unspecified fracture of shaft of unspecified tibia, initial encounter for closed fracture; S82.409A - Unspecified fracture of shaft of unspecified fibula, initial encounter for closed fracture (2) MS (multiple sclerosis) ICD Code: G35 - Multiple sclerosis (3) Tobacco abuse ICD Code: Z72.0 - Tobacco use Assessment and Plan 1. Bilateral Tib-Fib Fractures from a fall status post repair. She is stable continue postoperative care, pain management counseled regarding narcotics, wound care, physical therapy and DVT prophylaxis with Lovenox. 2. MS: Follows w/ Dr. Guan, will consult as needed, no acute flare. 3. Tobacco Abuse: Pt counselled. NicoDerm prn. 4. Anemia secondary to acute blood loss. Hemodynamically stable Medically stable for discharge Lowell Holt MD Oct 02, 2017 11:25
[2017-10-02 12:00] VITALS: BP 127/60; PULSE 89; RESP 16; TEMP 96.2
[2017-10-02 13:35] VITALS: RESP 18
--- NOTE | 2017-10-02 14:12 | HHI.DS ---
Discharge Summary Admission Date Sep 24, 2017 at 20:58 Discharge Date: Oct 02, 2017 Admitting Diagnosis Fracture distal left tib-fib. Fracture proximal right tib-fib (1) Fracture, tibia and fibula ICD Code: S82.209A - Unspecified fracture of shaft of unspecified tibia, initial encounter for closed fracture; S82.409A - Unspecified fracture of shaft of unspecified fibula, initial encounter for closed fracture Diagnosis: Principal (2) MS (multiple sclerosis) ICD Code: G35 - Multiple sclerosis (3) Tobacco abuse ICD Code: Z72.0 - Tobacco use Diagnosis: Principal Procedures Open reduction internal fixation right proximal tibia fractures, open reduction internal fixation of left distal tibia pilon fracture Brief History - From Admission This is a 62-year-old female with a PMH of MS who presented to the ER with complaints of bilateral leg pain. Initial ER presentation on 09/08/17 after fall at home while trying to get out of rocking chair. X-ray 09/08/17 w/ bilateral comminuted fractures of distal tibia/fibula, s/p splint, Dr. Vu consulted by ER physician and recommended non-operative management and outpatient follow up, states she called the office and given appt at the end of the month, however states pain is progressively worse. No new injuries reported. Pain is constant, worse w/ movement, 10/10, non-radiating. On arrival, BP 131/63, HR 84, O2 sat 94% on RA, Afebrile. CBC unremarkable. Essentially remarkable except for BUN 22. INR 1.0. Dr. Thompson consulted by ER physician, plan is for surgical intervention. Imaging Last Impressions Tibia/Fibula X-Ray 09/26/17 0000 Signed Impressions: Service Date/Time: Tuesday, September 26, 2017 15:37 - CONCLUSION: Interim screw and plate fixation of the comminuted proximal shaft fracture of the right tibia in near-anatomic alignment. No acute complication demonstrated. Hardeep Valerio MD Lower Extremity CT 09/25/17 0000 Signed Impressions: Service Date/Time: Monday, September 25, 2017 09:19 - CONCLUSION: Proximal tibia and fibular fractures. Rj Leo MD Ankle X-Ray [id number] Signed Impressions: Service Date/Time: Sunday, September 24, 2017 19:28 - CONCLUSION: Comminuted fractures of the distal tibia and fibula. Intra-articular extension of one of the tibial fracture lines. Chan Yu MD Chest X-Ray [id number] Signed Impressions: Service Date/Time: Sunday, September 24, 2017 19:36 - CONCLUSION: Patchy left basilar infiltrates and linear atelectasis/scarring right lower lobe. Chan Yu MD PE at Discharge GENERAL: This is a well-nourished, well-developed patient, in no apparent distress. CARDIOVASCULAR: Regular rate and rhythm without murmurs, gallops, or rubs. RESPIRATORY: Clear to auscultation. Breath sounds equal bilaterally. No wheezes , rales, or rhonchi. GASTROINTESTINAL: Abdomen soft, non-tender, nondistended. Normal active bowel sounds MUSCULOSKELETAL: Short leg splint left lower extremity, dry dressing right lower extremity. Neurovascularly intact NEUROLOGICAL: Awake, alert and oriented x4. No focal neurologic deficits. Moving both upper and lower extremities spontaneously. Hospital Course 1. Bilateral Tib-Fib Fractures from a fall status post repair. She is stable continue postoperative care, pain management counseled regarding narcotics, wound care, physical therapy and DVT prophylaxis with Lovenox. 2. MS: Follows w/ Dr. Guan, will consult as needed, no acute flare. 3. Tobacco Abuse: Pt counselled. NicoLisa prn. 4. Anemia secondary to acute blood loss. Hemodynamically stable Medically stable for discharge. [facility] Pt Condition on Discharge: Stable Discharge Disposition: Disch w/ Home Health Serv Discharge Time: > 30 minutes Discharge Instructions DIET: Follow Instructions for: Heart Healthy Diet Activities you can perform: See Additionl Instruction Activities to Avoid: Driving Other Activity Instructions: PT Follow up Referrals: Orthopedics - 2 Weeks @ [facility] with Waylon Rouse MD PCP Follow-up - 2-3 Days New Medications: Calcium Carbonate-Vitamin D (Calcium 600+D 200) 600-200 Mg-Unit Tab 1 TAB PO BID for Nutritional Supplement for 60 Days, #120 TAB 0 Refills Cholecalciferol (Vitamin D3) 2,000 Unit Cap 2000 UNITS PO DAILY for Nutritional Supplement, #45 CAP 0 Refills Ergocalciferol (Ergocalciferol) 50,000 Unit Cap 89310 UNITS PO Q7D for Nutritional Supplement, #8 CAP Hydrocodone-Acetaminophen (Hydrocodone-Acetaminophen) 10-325 mg Tab 1 TAB PO Q4H PRN for PAIN, #60 TAB 0 Refills Rivaroxaban (Xarelto) 10 Mg Tab 10 MG PO DAILY for Blood Clot Prevention, #21 TAB 0 Refills Wheelchair Elevated Leg (Wheelchair Elevated Leg) 1 Mis Mis EA .XX DIRECTED, #1 0 Refills Continued Medications: Alprazolam (Xanax) 1 Mg Tab 1 MG PO BID PRN for ANXIETY, #6 TAB 0 Refills (This prescription has been renewed) Lansoprazole (Lansoprazole) 30 Mg Capdr 30 MG PO DAILY, CAP 0 Refills Polyethylene Glycol 3350 Powder (Miralax Powder) 17 Gm Powd 17 GM PO DAILY for Constipation, #1 CAN 0 Refills Mix and dissolve one measuring cap-ful (17 grams) in water or juice. Sertraline (Zoloft) 100 Mg Tab 150 MG PO DAILY, TAB 0 Refills Discontinued Medications: Calcium Citrate-Vitamin D (Calcium Citrate-Vitamin D) 315-200 Mg-Unit Tab 1 TAB PO BID for Calcium Supplement, TAB 0 Refills Hydrocodone-Acetaminophen (Garnavillo) 10-325 Mg Tab 1 TAB PO Q6H PRN for PAIN, #20 TAB 0 Refills Lowell Holt MD Oct 02, 2017 14:12
== END 2017-10-02 16:18 | disposition home health service (06) | DRG 493 ==
LOC: NEPD 18:06 → NEDA 20:58 → N07A 23:45
PROVIDERS: ADMIT Internal Medicine; ATTEND Internal Medicine
PROC: 0QSH04Z Reposition Left Tibia with Internal Fixation Device, Open Approach (ICD-10-PCS; principal; 2017-09-26 14:37)
DX: S82.192G Other fracture of upper end of left tibia, subsequent encounter for closed fracture with delayed healing (principal); D62 Acute posthemorrhagic anemia; G35 Multiple sclerosis; F32.9 Major depressive disorder, single episode, unspecified; S82.872 Displaced pilon fracture of left tibia; S82.832G Other fracture of upper and lower end of left fibula, subsequent encounter for closed fracture with delayed healing; W18.30XD Fall on same level, unspecified, subsequent encounter; S82.451G Displaced comminuted fracture of shaft of right fibula, subsequent encounter for closed fracture with delayed healing; E78.00 Pure hypercholesterolemia, unspecified; Z72.0 Tobacco use; M19.90 Unspecified osteoarthritis, unspecified site; F41.9 Anxiety disorder, unspecified; Y92.009 Unspecified place in unspecified non-institutional (private) residence as the place of occurrence of the external cause
CPT/HCPCS: 71045; 73590; 73600; 73700; 76000; 80053; 82652; 85014; 85018; 85025; 85610; 85730; 93005; 94150; 96361; 96374; 96375; C1713; J0131; J1100; J1170; J1580; J1650; J2175; J2250; J2270; J2370; J2405; J3370; J7030; J7050; J7120; L1830